=== PATIENT | female | born 1950 | race Caucasian/White ===

== ENCOUNTER → 2018-03-04 13:03 | Outpatient (CLI) | payer MEDICARE, OTHER, SELFPAY ==
--- NOTE | 2018-03-04 | DI.MG.S_ITS ---
UNILATERAL RIGHT DIGITAL DIAGNOSTIC MAMMOGRAM 3D/2D: 03/04/2018 CLINICAL: Patient returns for a 6 month follow up of the right breast. Comparison is made to exams dated: 08/25/2017 mammogram, 02/24/2017 mammogram, and 08/21/2016 mammogram - [facility]. There are scattered fibroglandular elements in the right breast. Previously identified 4 mm area of grouped heterogeneous calcifications in the right breast at 6 o'clock posterior depth are unchanged in extent of involvement and slightly more coarse and heterogenous than prior exam. No other significant masses, calcifications, or other findings are seen in either breast. IMPRESSION: PROBABLY BENIGN Similar 4 mm extent of grouped heterogeneous calcifications in the right breast, demonstrating increased coarsening suggestive of a degenerating fibroadenoma and is probably benign. A follow-up mammogram in 6 months is recommended to demonstrate stability. This exam was interpreted at Station ID: [id number]. NOTE: For mammograms, a report in lay terms will be sent to the patient. Approximately 15% of breast malignancies will not be visualized mammographically. In the management of a palpable breast mass, a negative mammogram must not discourage biopsy of a clinically suspicious lesion. Electronically Signed By: Dedrick Cochran M.D. ecl/:03/05/2018 05:54:19 letter sent: Followup Recommended ACR BI-RADS Category 3: Probably benign 3343F
== END ==
PROVIDERS: Family Provider Family Medicine; PCP Family Medicine; Visit Provider Family Medicine
DX: R92.1 Mammographic calcification found on diagnostic imaging of breast (principal)
CPT/HCPCS: 77065; G0279

== ENCOUNTER → 2018-03-20 12:25 | Outpatient (CLI) | payer MEDICARE, OTHER, SELFPAY ==
--- NOTE | 2018-03-20 | DI.RAD.S_ITS ---
PROCEDURE: XR KNEE LT 3V INDICATIONS: LEFT KNEE PAIN TECHNIQUE: 3 views of the knee were acquired. COMPARISON: [facility], , KNEE 3V RIGHT, 04/13/2010, 9:13. FINDINGS: Bones: No fractures or dislocations. No suspicious bony lesions. Moderate to severe tricompartment osteoarthritis is seen. No significant patellar subluxation. Soft tissues: No joint effusion. No suspicious soft tissue calcifications. IMPRESSION: Jikggycr-vk-jyulim tricompartment osteoarthritis in left knee. Dictated by: Kyle Ball M.D. on 03/20/2018 at 20:50 Approved by: Kyle Ball M.D. on 03/20/2018 at 20:50
== END ==
PROVIDERS: PCP Family Medicine; Visit Provider Family Medicine
DX: M25.562 Pain in left knee (principal); M17.12 Unilateral primary osteoarthritis, left knee
CPT/HCPCS: 73562

== ENCOUNTER → 2018-10-19 09:22 | Outpatient (CLI) | payer MEDICARE, OTHER, SELFPAY ==
--- NOTE | 2018-10-19 | DI.MG.S_ITS ---
BILATERAL DIGITAL DIAGNOSTIC MAMMOGRAM 3D/2D SHORT-TERM FOLLOW-UP: 10/19/2018 CLINICAL: Patient returns for 6 month follow up of right breast, due for bilateral exam. Comparison is made to exams dated: 03/04/2018 mammogram, 08/25/2017 mammogram, 02/24/2017 mammogram, 08/21/2016 mammogram, and 08/15/2016 mammogram - [facility]. There are scattered fibroglandular elements in both breasts. There is a benign 4 mm area of clustered heterogeneous calcifications in the right breast at 6 o'clock posterior depth. These are not significantly changed. No other significant masses, calcifications, or other findings are seen in either breast. IMPRESSION: There is no mammographic evidence of malignancy. A 1 year screening mammogram is recommended. This exam was interpreted at Station ID: [id number]. NOTE: For mammograms, a report in lay terms will be sent to the patient. Approximately 15% of breast malignancies will not be visualized mammographically. In the management of a palpable breast mass, a negative mammogram must not discourage biopsy of a clinically suspicious lesion. Electronically Signed By: Kaley Palmer M.D. lk/:10/19/2018 10:17:56 letter sent: Normal Exam ACR BI-RADS Category 2: Benign Finding(s) 3342F
== END ==
PROVIDERS: Family Provider Family Medicine; PCP Family Medicine; Visit Provider Family Medicine
DX: R92.1 Mammographic calcification found on diagnostic imaging of breast (principal)
CPT/HCPCS: 77066; G0279

== ENCOUNTER 2019-07-26 08:04 | Day surgery (SDC) | payer MEDICARE, OTHER, SELFPAY ==
[2019-07-26 08:21] VITALS: BP 148/81; PULSE 97; RESP 20; TEMP 36.3; O2SAT 95; BMI 35.0
[2019-07-26] MEDS: SODIUM CHLORIDE 0.9% 1,000 ML 200 ML IV (08:38)
--- NOTE | 2019-07-26 08:41 | PM.HP.1 ---
History of Present Illness History of Present Illness Date Patient Seen: 07/26/19 Time Patient Seen: 08:42 Chief complaint: [id number] SCREENING COLONOSCOPY Narrative: Patient presents for colorectal screening. Id a previously normal colonoscopy 12 years ago. No personal or family history of colon cancer. On further history denies any recent gastrointestinal symptoms. No nausea, vomiting, abdominal pain, loss of appetite, unexplained weight loss, change in bowel habits, diarrhea, constipation, melena, hematochezia, or bright red blood per rectum. Patient History Medical History Diabetes (Acute) HTN (hypertension) (Acute) Hyperlipidemia (Acute) Surgical History H/O section (Acute) History of cholecystectomy (Acute) Family & Social History Social History: household members spouse Tobacco & Substance use: Smoking Status Never smoker alcohol intake never Substance Use Type does not use Meds Home Medications and Allergies Home Medications Medication Instructions Recorded Confirmed Type Celebrex 200 mg 07/26/19 History Lexapro 10 mg 07/26/19 History levocetirizine 5 mg 07/26/19 History montelukast 10 mg 07/26/19 History Allergies Allergy/AdvReac Type Severity Reaction Status Date / Time iodine Allergy Unknown Verified 07/26/19 04:44 Penicillins Allergy Unknown Verified 07/26/19 04:44 codeine AdvReac Unknown Vomiting Verified 07/26/19 04:49 meperidine AdvReac Unknown Vomiting Verified 07/26/19 04:49 morphine AdvReac Unknown Vomiting Verified 07/26/19 04:49 Review of Systems Review of Systems Narrative: A 10 point review of systems is negative except as noted in the HPI Exam Vital Signs (past 8 hours): - 07/26/19 08:21 Temperature 97.4 F L Pulse Rate 97 H Respiratory Rate 20 Blood Pressure 148/81 H Pulse Oximetry 95 Oxygen Delivery Method Room Air Narrative Exam Narrative: General-no acute distress, well nourished HEENT-moist mucous membranes, no scleral icterus Neck-supple, no lymphadenopathy Chest- non labored respirations, clear to auscultation bilaterally Cardiac-regular rate no peripheral edema Abdomen-soft, nontender, non distended Extremities-warm, well perfused Neurological-alert and oriented, no focal deficits Assessment & Plan Assessment and plan (1) Screening for colon cancer: Current visit: Yes Status: Acute Assessment & Plan narrative: The patient requires colorectal screening and colonoscopy is recommended. Technical details were discussed. Risks, benefits, alternatives explained. Risks including but not limited to myocardial infarction, aspiration, bleeding, pain, missed lesion, incomplete examination, need for further radiographic studies, colonic perforation, and need for major abdominal surgery were discussed. All questions were answered to their satisfaction, and they are in agreement with this plan.
[2019-07-26] MEDS: MIDAZOLAM 5 MG/5 ML VIAL IV (08:46)
[2019-07-26] MEDS: fentaNYL 250 MCG/5 ML INJ IV (08:46)
--- NOTE | 2019-07-26 09:15 | PM.OP.ENDO ---
Operative Date/Time/Diagnoses Date of procedure: 07/26/19 Time of procedure: 09:15 Pre-op diagnosis: Screening colonoscopy Post-op diagnosis: same Procedure & Clinicians Study performed: Colonoscopy Same procedure as scheduled: Yes Indications: 69-year-old female last colonoscopy 12 years ago presents for screening Surgeon: Raj Sharma Procedure Notes SCOAP/Timeout: Performed Procedure in detail: Patient placed in left lateral decubitus position. Time out was performed. Procedural sedation was administered with Versed and Fentanyl. A rectal exam demonstrated no external hemorrhoids no internal masses. Colonoscopy scope was placed into the rectum and advanced through the colon to the cecum. The ileocecal valve was identified. The scope was then slowly withdrawn examining colon thoroughly in all directions. The colonoscopy was notable for the following 1. No masses or polyps 2. Sigmoid diverticulosis 3. Quality of prep fair Scope withdrawal time: 6 Sedation minutes: 30 Findings: diverticulosis Specimen(s): none sent Complications: none Impression: Diverticulosis Post-procedure Recommendations: Colonscopy in 10 years Disposition: same day surgery
[2019-07-26 09:18] VITALS: BP 107/60; PULSE 89; RESP 13; TEMP 36; O2SAT 94
[2019-07-26 09:23] VITALS: BP 101/56; PULSE 87; RESP 13; O2SAT 93
[2019-07-26 09:28] VITALS: BP 109/65; PULSE 88; RESP 13; O2SAT 92
[2019-07-26 09:33] VITALS: BP 120/78; PULSE 87; RESP 13; TEMP 36.6; O2SAT 93
[2019-07-26 09:52] VITALS: BP 138/76; PULSE 89; RESP 16; TEMP 36.6; O2SAT 93
== END 2019-07-26 09:58 | disposition home or self-care (01) ==
PROVIDERS: Family Provider Family Medicine; PCP Family Medicine; Referring Provider Surgery; Visit Provider Surgery
PROC: 0DJD8ZZ Inspection of Lower Intestinal Tract, Via Natural or Artificial Opening Endoscopic (ICD-10-PCS; CPT 45378; principal; 2019-07-26 09:15)
DX: Z12.11 Encounter for screening for malignant neoplasm of colon (principal); K57.30 Diverticulosis of large intestine without perforation or abscess without bleeding
CPT/HCPCS: G0121; 99152; 99153; J2250; J3010

== ENCOUNTER → 2020-05-18 11:14 | Outpatient (CLI) | payer MEDICARE, OTHER, SELFPAY ==
--- NOTE | 2020-05-18 | DI.MG.S_ITS ---
BILATERAL DIGITAL SCREENING MAMMOGRAM 3D/2D WITH CAD: 05/18/2020 CLINICAL: Routine screening. Family history of breast cancer. Comparison is made to exams dated: 10/19/2018 mammogram, 08/25/2017 mammogram, and 08/15/2016 mammogram - [facility]. There are scattered fibroglandular elements in both breasts. Current study was also evaluated with a Computer Aided Detection (CAD) system. There is a stable benign round asymmetry in the right breast at 6 o'clock anterior depth. No other significant masses, calcifications, or other findings are seen in either breast. IMPRESSION: BENIGN There is no mammographic evidence of malignancy. A 1 year screening mammogram is recommended. This exam was interpreted at Station ID: [id number]. NOTE: For mammograms, a report in lay terms will be sent to the patient. Approximately 15% of breast malignancies will not be visualized mammographically. In the management of a palpable breast mass, a negative mammogram must not discourage biopsy of a clinically suspicious lesion. Electronically Signed By: Pierre Tamayo acr/:05/18/2020 11:58:02 letter sent: Normal Exam ACR BI-RADS Category 2: Benign Finding(s) 3342F
== END ==
PROVIDERS: Family Provider Family Medicine; PCP Family Medicine; Referring Provider Family Medicine; Visit Provider Family Medicine
DX: Z12.31 Encounter for screening mammogram for malignant neoplasm of breast (principal); Z80.3 Family history of malignant neoplasm of breast
CPT/HCPCS: 77063; 77067

== ENCOUNTER → 2021-06-05 12:04 | Outpatient (CLI) | payer MEDICARE, OTHER, SELFPAY ==
--- NOTE | 2021-06-05 12:08 | DI.RAD.S_ITS ---
PROCEDURE: XR CHEST 2V INDICATIONS: COUGH TECHNIQUE: 2 views of the chest were acquired. COMPARISON: [facility], BARIUM SWALLOW, 07/18/2011, 10:31. [facility], CR, CHEST 2 VIEW, 12/17/2011, 8:36. [facility], , CHEST 2 VIEW, 10/07/2011, 7:00. FINDINGS: Surgical changes and devices: None. Lungs and pleura: Lungs are clear. No pleural effusions or pneumothorax. Mediastinum: Mediastinal contours are normal. Heart size is normal. Large non reducible hiatal hernia present. Bones and chest wall: No suspicious bony abnormalities. Soft tissues appear unremarkable. IMPRESSION: No source for cough identified radiographically. Non reducible hiatal hernia. Dictated by: Anam Reich [facility] Interpreted: Alondra Whitehead MD on 06/05/2021 at 13:06 Transcribed by: SAUMYA on 06/05/2021 at 13:08 Approved by: Alondra Whitehead MD, PhD on 06/05/2021 at 14:25
== END ==
PROVIDERS: Family Provider Family Medicine; PCP Family Medicine; Referring Provider Family Medicine; Visit Provider Family Medicine
DX: R05.3 Chronic cough (principal); K44.0 Diaphragmatic hernia with obstruction, without gangrene; R06.09 Other forms of dyspnea
CPT/HCPCS: 71046

== ENCOUNTER → 2021-07-10 10:19 | Outpatient (CLI) | payer MEDICARE, OTHER, SELFPAY | PROVIDERS: Family Provider Family Medicine; PCP Family Medicine; Referring Provider Family Medicine; Visit Provider Family Medicine | DX: R06.02 Shortness of breath (principal); R00.0 Tachycardia, unspecified ==

== ENCOUNTER → 2021-07-12 08:15 | Outpatient (CLI) | payer MEDICARE, OTHER, SELFPAY ==
--- NOTE | 2021-07-12 | DI.CT.S_ITS ---
PROCEDURE: CT CHEST W CON INDICATIONS: Chronic cough and other forms of dyspnea TECHNIQUE: After the administration of intravenous contrast, 5 mm thick sections acquired from the pulmonary apices to the posterior costophrenic angles. 1 mm axial lung, 5 mm thick coronal and sagittal reformats and 7 mm axial MIP were acquired. For radiation dose reduction, the following was used: automated exposure control, adjustment of mA and/or kV according to patient size. COMPARISON: [facility], CT, CHEST HIGH RESOLUTION, 02/04/2012, 10:53. [facility], CR, XR CHEST 2V, 06/05/2021, 12:03. FINDINGS: Image quality: Excellent. Lungs and pleura: No acute air space opacities. No pleural effusions or pneumothorax. Central and peripheral airways are patent and normal in caliber. Stable 3 mm posterior right upper lobe nodule (image 87/series 3). Multiple subpleural nodules are noted in the bilateral hemithoraces measuring between 2 and 5 mm in size. Largest left upper lobe nodule measures 3 mm (image 67/series 3). Largest left lower lobe nodule measures 5 mm on image 204/series 3. Largest right middle lobe nodule is seen on image 201/series 3. Mediastinum: Heart size is normal. No pericardial effusion. No mediastinal or hilar adenopathy by size criteria. Thoracic aorta and central pulmonary arteries are normal in size. Esophagus is normal in caliber. Moderate-sized hiatal hernia redemonstrated. Bones and chest wall: No suspicious bony lesions. No vertebral body compression fractures. No axillary or supraclavicular adenopathy by size criteria. Thyroid gland is unremarkable. Abdomen: Status post cholecystectomy. Partially exophytic 3.3 cm anterior right renal cyst. Remainder of the visualized upper abdominal solid organs and bowel loops appear unremarkable. IMPRESSION: 1. CT chest without acute cardiopulmonary abnormalities. No findings to explain patient's shortness of breath. 2. Multiple bilateral pulmonary nodules measuring between 2 mm and 5 mm. Recommend follow-up chest CT in 12 months to document continued stability. 3. Moderate-sized hiatal hernia. 4. Status post cholecystectomy. Dictated by: Payam Lim M.D. on 07/12/2021 at 10:26 Approved by: Payam Lim M.D. on 07/12/2021 at 10:38
== END ==
PROVIDERS: Family Provider Family Medicine; PCP Family Medicine; Referring Provider Family Medicine; Visit Provider Family Medicine
DX: R06.09 Other forms of dyspnea (principal); R05.3 Chronic cough; R91.8 Other nonspecific abnormal finding of lung field; K44.9 Diaphragmatic hernia without obstruction or gangrene; Z90.49 Acquired absence of other specified parts of digestive tract
CPT/HCPCS: 71260; Q9967

== ENCOUNTER → 2021-07-18 15:53 | Outpatient (CLI) | payer MEDICARE, OTHER, SELFPAY ==
--- NOTE | 2021-08-02 08:41 | PM.CARDMON.1 ---
Supervisor Fishing Report Referral & Results Date Patient Seen: 07/18/21 Requesting provider: Alisha Novoa Indication: Tachycardia Duration of monitoring (days): 8 Diary information: There were 9 patient triggered events and 10 patient diary entries Patient triggered events were variably associated with (within 45 seconds) sinus rhythm, PACs and PVCs Patient diary events were variably associated with (within 45 seconds) sinus rhythm and PACs Data: Minimum heart rate identified was 65 beats per minute at 04:20 on 07/21/2021 Maximum sinus heart rate was 132 beats per minute at 09:25 on 07/25/2021 Maximum overall heart rate was 154 beats per minute at 04:11 on 07/22/2021 during a run of SVT Less than 1% of identified beats were ventricular or supraventricular ectopic in origin, which would classify them as rare. Therefore runs of SVT the fastest being the 4 beat run noted above. The longest lasted 13 beats at a rate of 109 beats per minute which suggest more atrial tachycardia than true SVT No pauses or atrial fibrillation identified on this study Impression: 7+ day quality assurance monitor chassis demonstrating very rare very brief runs of SVT otherwise simple PACs and PVCs Clinical correlation suggested
== END ==
PROVIDERS: Family Provider Family Medicine; PCP Family Medicine; Referring Provider Family Medicine; Visit Provider Family Medicine
DX: R00.0 Tachycardia, unspecified (principal)
CPT/HCPCS: 93242; 93244

== ENCOUNTER → 2021-07-19 12:45 | Outpatient (CLI) | payer MEDICARE, OTHER, SELFPAY ==
[2021-07-19 14:19] LABS: COVID19 -Nasal RAPID Negative (Negative)
== END ==
PROVIDERS: Family Provider Family Medicine; PCP Family Medicine; Referring Provider Internal Medicine; Visit Provider Internal Medicine
DX: Z20.822 Contact with and (suspected) exposure to COVID-19 (principal)
CPT/HCPCS: 87635; C9803

== ENCOUNTER → 2021-07-20 12:35 | Outpatient (CLI) | payer MEDICARE, OTHER, SELFPAY ==
--- NOTE | 2021-07-25 07:42 | PM.PFT.1 ---
Pulmonary Function Test Referral & Results Date Patient Seen: 07/20/21 Requesting provider: Alisha Novoa Results: The spirometry demonstrates an FVC of 2.25 L which is 74% of predicted. The FEV1 was measured at 1.37 L which is 60% of predicted. The FEV1/FVC ratio was 61 which is 81% of predicted. Following the administration of bronchodilator there was 9% improvement in FEV1 and a 26% improvement in FEF 25-75% Lung volumes show an SVC of 2.56 L which is 88% of predicted. The diffusing capacity was measured at 21.91 which is 85% of predicted. The maximum voluntary ventilation was reduced Interpretation: This study demonstrates mild to moderate obstructive lung disease based on reduction FEV1 although FEV1/FVC ratio is relatively preserved. There is some evidence of benefit after bronchodilator as above. Shape of flow volume loop also supports the presence of obstructive lung disease Clinical correlation suggested
== END ==
PROVIDERS: Family Provider Family Medicine; PCP Family Medicine; Referring Provider Family Medicine; Visit Provider Family Medicine
DX: R06.00 Dyspnea, unspecified (principal); R05.3 Chronic cough; R06.02 Shortness of breath; J44.9 Chronic obstructive pulmonary disease, unspecified
CPT/HCPCS: 94060; 94726; 94729

== ENCOUNTER → 2021-07-30 07:52 | Outpatient (CLI) | payer MEDICARE, OTHER, SELFPAY ==
--- NOTE | 2021-07-30 | DI.ECHO.S_ITS ---
[facility]---------+ [facility] +---------+ : : [address] : [place] : : : : [id number] : : : : Phone: [phone]+ Echocardiogram Report + + :Name: EUFEMIA DELEON Study Date: 07/30/2021 Height: 65 in : :[facility] ReadingLocation: Weight: 220 lb : : Gender: Female BSA: 2.1 m2 : :: 1950 Age: 71 yrs BP: 130/80 mmHg: :Reason For Study: Unspecified abnormalities of breathing : :Ordering Physician: : :WOODY Performed By: Jt Etienne : :Referring: CHRISSIE EVANS : + + Interpretation Summary 1) Normal left ventricular thickness, size, wall motion, and systolic function (EF 60-65%). 2) Normal right ventricular size and function. 3) No significant valvular abnormalities. 4) No prior Echo available for comparison. Procedure: A two-dimensional transthoracic echocardiogram with color flow and Doppler was performed. There is no prior echocardiogram noted for this patient. Overall fair image quality. The patient was in normal sinus rhythm during the exam. Left Ventricle: The left ventricle is normal in size and wall thickness. Left ventricular systolic function appears normal without focal wall motion abnormalities. The ejection fraction is estimated to be 60-65%. Right Ventricle: The right ventricle is normal in size and function. Atria: Both atria are normal in size. There is no Doppler evidence for an interatrial shunt. Mitral Valve: The mitral valve is normal in structure and function. Aortic Valve: The aortic valve opens well. The aortic valve is grossly normal. There is no aortic valve stenosis. There is trace aortic regurgitation. Tricuspid Valve: The tricuspid valve is normal. There is trace tricuspid regurgitation. The right ventricular systolic pressure is estimated to be at least 20 mmHg based on an estimated right atrial pressure of 3 mm Hg. Pulmonic Valve: The pulmonic valve is not well seen, but is grossly normal. Great Vessels: The aortic root is normal size. The ascending aorta is normal in size. The aortic arch is normal in size. The IVC is of normal diameter and collapses greater than 50% with a sniff. This suggests a low right atrial pressure of 3 mm Hg. Pericardium/ Pleura There is no pericardial effusion. There is an anterior echo-free space consistent with a fat pad. There is no pleural effusion. MMode/2D Measurements & Calculations LVIDd: 3.6 cm LVOT diam: 1.8 cm LVIDs: 2.5 cm Ao root diam: 2.9 cm FS: 30.6 % asc Aorta Diam: 2.9 cm IVSd: 0.70 cm Ao Arch Diam (Prox Trans): 2.4 cm LVPWd: 0.70 cm LV rachel. diameter/BSA (cm/m^2): 1.7 LV sys. diameter/BSA (cm/m^2): 1.2 LA A2 area: 12.6 cm2 RA long axis: 4.6 cm LA A4 area: 19.9 cm2 LA length (vol): 4.8 cm LA vol: 44.1 ml LA vol index: 21.4 ml/m2 LVLs ap4: 4.8 cm TAPSE_phl: 2.4 cm Doppler Measurements & Calculations Ao V2 max: 119.0 cm/sec LVOT Max Esdras: 114.0 cm/sec Ao V2 mean: 92.0 cm/sec LV V1 max P.2 mmHg Ao max P.0 mmHg LV V1 VTI: 24.1 cm Ao mean P.0 mmHg SUREKHA(I,D): 2.5 cm2 Ao V2 VTI: 24.5 cm SUREKHA(V,D): 2.4 cm2 sev ratio: 0.98 SUREKHA indexed to BSA (cm^2/m^2): 1.2 MV E max esdras: 91.7 cm/sec TR max esdras: 203.6 cm/sec MV A max esdras: 79.7 cm/sec TR max P.6 mmHg MV E/A: 1.2 Med Peak E' Esdras: 8.0 cm/sec E/E' med: 11.4 Lat Peak E' Esdras: 10.3 cm/sec E/E' lat: 8.9 E/e' average: 10.2 MV dec time: 0.14 sec SV(LVOT): 61.3 ml AV VR_phl: 0.96 SUREKHA(VTI)/BSA_phl: 1.2 MV P1/2t-pr_phl: 40.0 msec Reading Physician:09:15 AM
== END ==
PROVIDERS: Family Provider Family Medicine; PCP Family Medicine; Referring Provider Family Medicine; Visit Provider Family Medicine
DX: R06.09 Other forms of dyspnea (principal); R00.0 Tachycardia, unspecified
CPT/HCPCS: 93306

== ENCOUNTER → 2021-08-01 10:11 | Outpatient (CLI) | payer MEDICARE, OTHER, SELFPAY ==
--- NOTE | 2021-08-01 | DI.MG.S_ITS ---
BILATERAL DIGITAL SCREENING MAMMOGRAM 3D/2D WITH CAD: 08/01/2021 CLINICAL: Routine screening. Comparison is made to exams dated: 05/18/2020 mammogram, 10/19/2018 mammogram, 03/04/2018 mammogram, and 08/25/2017 mammogram - [facility]. There are scattered fibroglandular elements in both breasts. Current study was also evaluated with a Computer Aided Detection (CAD) system. No significant masses, calcifications, or other findings are seen in either breast. There has been no significant interval change. IMPRESSION: NEGATIVE There is no mammographic evidence of malignancy. A 1 year screening mammogram is recommended. This exam was interpreted at Station ID: [id number]. NOTE: For mammograms, a report in lay terms will be sent to the patient. Approximately 15% of breast malignancies will not be visualized mammographically. In the management of a palpable breast mass, a negative mammogram must not discourage biopsy of a clinically suspicious lesion. Electronically Signed By: Erin vargas/mayco:08/01/2021 13:24:13 letter sent: Normal Exam ACR BI-RADS Category 1: Negative 3341F
== END ==
PROVIDERS: Family Provider Family Medicine; PCP Family Medicine; Referring Provider Family Medicine; Visit Provider Family Medicine
DX: Z12.31 Encounter for screening mammogram for malignant neoplasm of breast (principal)
CPT/HCPCS: 77063; 77067

== ENCOUNTER → 2021-08-20 13:26 | Outpatient (CLI) | payer MEDICARE, OTHER, SELFPAY ==
[2021-08-20 17:30] LABS: COVID19 -Nasal RAPID Negative (Negative)
== END ==
PROVIDERS: Family Provider Family Medicine; PCP Family Medicine; Visit Provider Family Medicine Sleep Medicine
DX: Z20.822 Contact with and (suspected) exposure to COVID-19 (principal)
CPT/HCPCS: 87635; C9803

== ENCOUNTER → 2021-08-22 13:34 | Outpatient (CLI) | payer MEDICARE, OTHER, SELFPAY ==
--- NOTE | 2021-08-23 11:59 | PM.TREADMILL ---
Cardiac Stress Test Report Referral & Results Indication: dyspnea on exertion Rest ECG: NSR with non specific ST changes Procedure Note: lexiscan Impression: after lexiscan, patient had minimal dyspnea; no chest discomfort; baseline ECG NSR with nonspecific ST changes; no significant ST cahnges on ECG after Lexiscan injection. No ectopy. No reversal agents needed. TERESA Major Please note: Actual ECG tracings can be found in the PACS system.
--- NOTE | 2021-08-23 18:59 | DI.NM.S_ITS ---
DATE OF SERVICE: 08/22/2021 PROCEDURE: Pharmacological perfusion study. INDICATION: Dyspnea, tachycardia, underlying diabetes mellitus and hypertension. RADIOPHARMACEUTICAL: 26.3 millicurie technetium-99m Myoview IV was injected at stress and 24.6 millicurie technetium-99m Myoview IV was injected at rest. CARDIAC STRESS: The patient underwent a Lexiscan perfusion study under the supervision of an attending staff. The patient remained hemodynamically stable. Had minimal dyspnea. No chest discomfort. Baseline rhythm was mild sinus tachycardia. During stress, no convincing ischemic changes seen. There were some nonspecific ST changes. No significant sustained new arrhythmias seen. RAW DATA: There was significant breast shadow seen. There was increased subdiaphragmatic activity. GATED STUDY: Resting LV ejection and stress LV ejection fraction 77 percent without any obvious wall motion abnormalities. Resting end-diastolic volume 81 mL. TID ratio 0.97, which is within normal limits. Lung/heart ratio 0.33, which is within normal limits. MYOCARDIAL PERFUSION SCAN: Stress supine and resting supine images were compared to each other. Please note that there are no stress prone images. Stress supine and resting supine images revealed predominantly fixed, small to moderate size, mildly decreased perfusion of inferolateral wall, extending into the inferoapex, as well as distal anterior wall. I do not see significant reversible ischemic burden. CONCLUSION: Predominantly fixed, mild to moderate size inferolateral wall defect extending into the inferior apex and distal anterior wall. The patient has significantly large breast shadow on raw images. Gated study revealed normal wall motion abnormalities and normal LV function, which goes against the diagnosis of previous transmural myocardial infarction. Prone images could not be performed. Most likely, we are dealing with tissue attenuation artifact however one cannot rule out the possibility of nontransmural myocardial infarction in that area. Correlate clinically. In view of preserved left ventricular function without any significant ischemic burden, overall appears to be low-risk study. FcoJemalen - JEAN CARLOS/az/ambar doc#: [id number]/job#: [id number] dd: 08/23/2021 17:21:00 dt: 08/23/2021 17:35:00 DICTATING MD/COPIES TO: Kofi De La Rosa MD COPIES MNE: JONAS;
== END ==
PROVIDERS: Family Provider Family Medicine; PCP Family Medicine; Referring Provider Family Medicine; Visit Provider Family Medicine
DX: R06.00 Dyspnea, unspecified (principal); R00.0 Tachycardia, unspecified; E11.9 Type 2 diabetes mellitus without complications; I10 Essential (primary) hypertension
CPT/HCPCS: 78452; 93017; A9502; J2785

== ENCOUNTER → 2021-08-27 12:43 | Outpatient (CLI) | payer MEDICARE, OTHER, SELFPAY ==
--- NOTE | 2021-08-27 12:47 | DI.RAD.S_ITS ---
PROCEDURE: XR KNEE LT 3V INDICATIONS: LT HIP AND KNEE PAIN TECHNIQUE: 3 views of the knee were acquired. COMPARISON: [facility], CR, XR KNEE 1 OR 2 VIEWS LEFT, 08/25/2018, 10:58. FINDINGS: Bones: Postsurgical changes are seen from left total knee arthroplasty. Hardware components do not appear significantly changed when compared to the prior exam. No acute osseous fracture identified. Soft tissues: No joint effusion. No suspicious soft tissue calcifications. IMPRESSION: Stable postsurgical changes from left total knee arthroplasty. No acute osseous abnormality. Dictated by: Omar Gaines M.D. on 08/27/2021 at 14:10 Approved by: Omar Gaines M.D. on 08/27/2021 at 14:12
--- NOTE | 2021-08-27 12:47 | DI.RAD.S_ITS ---
PROCEDURE: XR HIP W PEL IF DONE LT 2V INDICATIONS: LT HIP AND KNEE PAIN TECHNIQUE: AP pelvis with AP and lateral views of the left hip. COMPARISON: None. FINDINGS: Bones: Questionable linear lucency at the left femoral neck could represent a nondisplaced subcapital fracture versus likely artifact related to superimposed osseous structures. Moderate to severe axial joint space narrowing is seen in the left hip with marginal osteophyte formation. There is mild to moderate right hip osteoarthrosis. Degenerative changes are seen in the included lumbar spine. Pelvic ring appears intact. No suspicious bony lesions. Soft tissues: The visualized bowel gas pattern is normal. No suspicious soft tissue calcifications. IMPRESSION: 1. Possible nondisplaced fracture of the left femoral neck versus superimposed osseous structures resulting in artifactual lucency. Recommend clinical correlation. If there is clinical concern for a proximal femoral fracture, further evaluation with MRI or CT could be performed. 2. Moderate to severe left hip osteoarthrosis. Mild moderate right hip osteoarthrosis. 3. Degenerative changes in the included lumbar spine. Dictated by: Omar Gaines M.D. on 08/27/2021 at 14:05 Approved by: Omar Gaines M.D. on 08/27/2021 at 14:10
== END ==
PROVIDERS: Family Provider Family Medicine; PCP Family Medicine; Referring Provider Family Medicine; Visit Provider Family Medicine
DX: M16.0 Bilateral primary osteoarthritis of hip (principal); M47.816 Spondylosis without myelopathy or radiculopathy, lumbar region; M25.552 Pain in left hip; M25.562 Pain in left knee; Z96.652 Presence of left artificial knee joint
CPT/HCPCS: 73502; 73562

== ENCOUNTER 2021-08-27 13:47 | Emergency (ER) | payer MEDICARE, OTHER, SELFPAY ==
[2021-08-27] VITALS (10 sets, daily range): BP systolic 116–150; BP diastolic 60–72; PULSE 85–105; RESP 16–20; TEMP 36.1; O2SAT 92–96
--- NOTE | 2021-08-27 16:21 | DI.CT.S_ITS ---
PROCEDURE: CT PEL WO CON INDICATIONS: f/u on x ray w/ possible hip fx TECHNIQUE: Noncontrast 3 mm axial sections acquired through the bony pelvis, with coronal and sagittal reformatting. COMPARISON: [facility], CR, XR HIP W PEL IF DONE LT 2V, 08/27/2021, 12:48. FINDINGS: Image quality: Excellent. Bones: Pelvic ring is intact. No acute pelvic or hip fracture. No hip dislocation. Moderate to severe left hip joint osteoarthritic changes and moderate right hip joint osteoarthritic changes are seen. No evidence of avascular necrosis of femoral head. No suspicious intraosseous lesion. Soft tissues: There is no pelvic free fluid or free air. No bowel obstruction or abnormal bowel wall thickening. Sigmoid diverticulosis is seen without CT evidence of acute diverticulitis. Partially distended urinary bladder shows no gross bladder wall abnormality. No gross muscle or soft tissue abnormality is seen in pelvis and bilateral hip. No discrete intramuscular hematoma is seen. IMPRESSION: 1. No acute pelvic or hip fracture. No hip dislocation. Left worse than right bilateral hip joint osteoarthritis. No evidence of avascular necrosis of femoral head. 2. No pelvic free fluid or free air. No gross pelvic muscle or soft tissue abnormality. Dictated by: Kyle Ball M.D. on 08/27/2021 at 16:38 Approved by: Kyle Ball M.D. on 08/27/2021 at 16:42
--- NOTE | 2021-08-27 18:11 | ED_ITS ---
HPI - Fall <ALLISON ReichP - Last Filed: 08/27/21 18:55> General Chief Complaint: Fall Stated Complaint: Pain in Lt Hip and Knee, Sent from DI Time Seen by Provider: 08/27/21 17:55 Source: patient Mode of arrival: Wheelchair History of Present Illness HPI Narrative: This is a pleasant 71-year-old female with history of diabetes, hypertension, hyperlipidemia who presents to the emergency department of worsening left pain with referred pain into her over the last 2 days. Patient states that any movement is very painful, she describes it as sharp, deep in her left hip, denies any weakness, denies any recent trauma. Patient states that she fell 3 weeks ago and her left hip has been painful intermittently in the past but over the last 2 days it has become excruciating. Patient is ambulatory with a cane, she has been using a cane since her left knee replacement. She denies any other joint replacements in the past. She denies any fever, weakness, endorses taking Celebrex for her migraines so she is not taking any pain medication as there is not a lot compatible with it. Related Data Home Medications Medication Instructions Recorded Confirmed Celebrex 200 mg 07/26/19 Lexapro 10 mg 07/26/19 levocetirizine 5 mg 07/26/19 montelukast 10 mg 07/26/19 Previous Rx's Medication Instructions Recorded diclofenac sodium 1 % topical gel 2 g TOPICAL QID #100 g 08/27/21 (Voltaren Arthritis Pain) diclofenac sodium 1 % topical gel 2 g TOPICAL QID PRN #100 g 08/27/21 (Voltaren Arthritis Pain) lidocaine 5 % topical patch 1 patch TOPICAL DAILY PRN #15 ea 08/27/21 oxycodone-acetaminophen 5 mg-325 1 tab PO Q8H PRN #14 tab 08/27/21 mg tablet (Percocet) sulfamethoxazole 800 1 tab PO BID 7 Days #14 tab 08/27/21 mg-trimethoprim 160 mg tablet (Bactrim DS) tramadol 50 mg tablet 50 mg PO BID PRN #14 tab 08/27/21 Allergies Allergy/AdvReac Type Severity Reaction Status Date / Time iodine Allergy Unknown Verified 08/27/21 14:17 Penicillins Allergy Unknown Verified 08/27/21 14:17 codeine AdvReac Unknown Vomiting Verified 08/27/21 14:17 meperidine AdvReac Unknown Vomiting Verified 08/27/21 14:17 morphine AdvReac Unknown Vomiting Verified 08/27/21 14:17 Review of Systems <TERESA Reich - Last Filed: 08/27/21 18:55> Review of Systems Narrative: General: denies fever, chills, malaise, sweats, fatigue Head/Neck: denies headache, neck pain, dizziness Eyes: denies visual changes, eye pain Cardio: denies chest pain, palpitations, edema Respiratory: denies dyspnea, cough, orthopnea GI: denies abdominal pain, nausea, vomiting, or diarrhea : denies dysuria, hematuria, urinary retention, frequency or incontinence MSK: Endorses left hip pain, worse with movement, denies any muscle weakness Skin: denies rash, itching, skin lesions or other Neuro: denies numbness, tingling Patient History <TERESA Reich - Last Filed: 08/27/21 18:55> Medical History Diabetes HTN (hypertension) Hyperlipidemia Surgical History H/O section History of cholecystectomy Social History household members: spouse Smoking Status: Never smoker alcohol intake: never Smoking Status: Never smoker Substance Use Type: does not use Exam <TERESA Reich - Last Filed: 08/27/21 18:55> Narrative Exam Narrative: Independently reviewed vitals signs and nursing notes. General: cooperative, comfortable, in no acute distress, well developed and well groomed Head: atraumatic, symmetrical facial expressions Neck: supple, atraumatic, without lymphadenopathy. Eyes: pupils equal round and reactive, EOMI, conjunctiva normal Nose: nares patent, no rhinorrhea Mouth/Throat: uvula midline, moist mucus membranes Cardiovascular: regular rate and rhythm, no peripheral edema, warm extremities Respiratory: normal effort, able to speak in complete sentences, no audible wheezing, stridor, or rales. No retractions or tachypnea. GI: abdomen soft, nontender to palpation, nondistended, no masses, no exquisite tenderness with exam, without guarding or rebound. MSK: moves all extremities, ambulatory w/steady gait using a cane the left, ambulating is very painful, patient complains of stiffness after rest. Neurovascularly intact, no weakness Skin: brisk capillary refill, no rash, no erythema Neuro: normal speech and cognition, A&O x3, normal tone Psych: mental status is grossly normal, congruent mood, normal affect, pleasant and cooperative Initial Vital Signs Initial Vital Signs: Vital Signs Temperature 96.9 F L 08/27/21 14:14 Pulse Rate 96 H 08/27/21 14:14 Respiratory Rate 20 08/27/21 14:14 Blood Pressure 116/60 08/27/21 14:14 Pulse Oximetry 94 08/27/21 14:14 <Preethi Guillen DO - Last Filed: 08/28/21 07:56> Initial Vital Signs Initial Vital Signs: Vital Signs Temperature 96.9 F L 08/27/21 14:14 Pulse Rate 96 H 08/27/21 14:14 Respiratory Rate 20 08/27/21 14:14 Blood Pressure 116/60 08/27/21 14:14 Pulse Oximetry 94 08/27/21 14:14 Course <TERESA Reich - Last Filed: 08/27/21 18:55> Orders Ordered: Discontinued Medications Acetaminophen (Acetaminophen 325 Mg Tablet) 975 mg PO NOW ONE Stop: 08/27/21 18:28 Last Admin: 08/27/21 18:43 Dose: 975 mg Documented by: NATTY Lidocaine (Lidocaine Patch 1 Each Adh..Patch) 1 each TOP NOW ONE Stop: 08/27/21 18:28 Last Admin: 08/27/21 18:43 Dose: 1 each Documented by: ANTTY Tramadol HCl (Tramadol 50 Mg Tablet) 50 mg PO NOW ONE Stop: 08/27/21 18:07 Last Admin: 08/27/21 18:15 Dose: Not Given Documented by: CARMELO Trimethoprim/Sulfamethoxazole (Trimeth/Sulfa 160/800 (Ds) Tablet) 1 tab PO NOW ONE Stop: 08/27/21 18:07 Last Admin: 08/27/21 18:15 Dose: Not Given Documented by: CARMELO Vital Signs Vital signs: Vital Signs - 8 hr 08/27/21 14:14 08/27/21 16:41 08/27/21 16:43 Temperature 96.9 F L Pulse Rate 96 H 93 H 91 H Respiratory Rate 20 Blood Pressure 116/60 144/67 H Pulse Oximetry 94 92 94 08/27/21 17:00 08/27/21 17:30 Temperature Pulse Rate 86 86 Respiratory Rate Blood Pressure 131/62 134/69 Pulse Oximetry 94 95 <Preethi Guillen DO - Last Filed: 08/28/21 07:56> Orders Ordered: Discontinued Medications Acetaminophen (Acetaminophen 325 Mg Tablet) 975 mg PO NOW ONE Stop: 08/27/21 18:28 Last Admin: 08/27/21 18:43 Dose: 975 mg Documented by: NATTY Lidocaine (Lidocaine Patch 1 Each Adh..Patch) 1 each TOP NOW ONE Stop: 08/27/21 18:28 Last Admin: 08/27/21 18:43 Dose: 1 each Documented by: NATTY Tramadol HCl (Tramadol 50 Mg Tablet) 50 mg PO NOW ONE Stop: 08/27/21 18:07 Last Admin: 08/27/21 18:15 Dose: Not Given Documented by: CARMELO Trimethoprim/Sulfamethoxazole (Trimeth/Sulfa 160/800 (Ds) Tablet) 1 tab PO NOW ONE Stop: 08/27/21 18:07 Last Admin: 08/27/21 18:15 Dose: Not Given Documented by: CARMELO Vital Signs Vital signs: Vital Signs - 8 hr 08/27/21 14:14 08/27/21 16:41 08/27/21 16:43 Temperature 96.9 F L Pulse Rate 96 H 93 H 91 H Respiratory Rate 20 Blood Pressure 116/60 144/67 H Pulse Oximetry 94 92 94 08/27/21 17:00 08/27/21 17:30 Temperature Pulse Rate 86 86 Respiratory Rate Blood Pressure 131/62 134/69 Pulse Oximetry 94 95 MDM - Fall <TERESA Reich - Last Filed: 08/27/21 18:55> Imaging Data Extremity x-ray #1: Radiologist's Impression: PROCEDURE:? CT PEL WO CON ? INDICATIONS:? f/u on x ray w/ possible hip fx ? TECHNIQUE:? Noncontrast 3 mm axial sections acquired through the bony pelvis, with coronal and sagittal reformatting.? ? COMPARISON:? [facility], CR, XR HIP W PEL IF DONE LT 2V, 08/27/2021, 12:48. ? FINDINGS:? Image quality:? Excellent.? ? Bones:? Pelvic ring is intact.? No acute pelvic or hip fracture.? No hip dislocation.? Moderate to severe left hip joint osteoarthritic changes and moderate right hip joint osteoarthritic changes are seen.? No evidence of avascular necrosis of femoral head.? No suspicious intraosseous lesion. ? Soft tissues:? There is no pelvic free fluid or free air.? No bowel obstruction or abnormal bowel wall thickening.? Sigmoid diverticulosis is seen without CT evidence of acute diverticulitis.? Partially distended urinary bladder shows no gross bladder wall abnormality.? No gross muscle or soft tissue abnormality is seen in pelvis and bilateral hip.? No discrete intramuscular hematoma is seen. ? ? IMPRESSION:? 1. No acute pelvic or hip fracture.? No hip dislocation.? Left worse than right bilateral hip joint osteoarthritis.? No evidence of avascular necrosis of femoral head. 2. No pelvic free fluid or free air.? No gross pelvic muscle or soft tissue abnormality.? Dictated by: Kyle Ball M.D. on 08/27/2021 at 16:38 ? ? Approved by: Kyle Ball M.D. on 08/27/2021 at 16:42 ? Extremity x-ray #2: Radiologist's Impression: PROCEDURE:? XR KNEE LT 3V ? INDICATIONS:? LT HIP AND KNEE PAIN ? TECHNIQUE: 3 views of the knee were acquired.? ? COMPARISON:? [facility], CR, XR KNEE 1 OR 2 VIEWS LEFT, 08/25/2018, 10:58. ? FINDINGS:? ? Bones:? Postsurgical changes are seen from left total knee arthroplasty.? Hardware components do not appear significantly changed when compared to the prior exam.? No acute osseous fracture identified. ? Soft tissues:? No joint effusion.? No suspicious soft tissue calcifications.? ? ? IMPRESSION:? Stable postsurgical changes from left total knee arthroplasty.? No acute osseous abnormality. ? ? Dictated by: Omar Gaines M.D. on 08/27/2021 at 14:10 ? ? Approved by: Omar Gaines M.D. on 08/27/2021 at 14:12 ? MDM Narrative Medical decision making narrative: 71-year-old female presents with history of diabetes, hypertension, hyperlipidemia who presents to the emergency department complaining of worsening left hip pain after a fall she had 3 weeks ago. Patient endorses pain from her left hip is referred into her left knee which she had replaced a few years ago. Patient was concerned that something was wrong with her arthroplasty of her left knee. X-ray of her left knee shows stable postsurgical changes from a left knee total arthroscopy, no acute osseous abnormality, no joint effusion. CT of her left hip does not show any acute pelvic or hip fracture, no hip dislocation, left worth than right bilateral hip joint osteoarthritis, no evidence of avascular necrosis of the femoral head, no pelvic free fluid or free air, no gross pelvic muscle or soft tissue abnormality. A referral was placed to [facility]. Encourage patient to follow-up with Dr. Novoa for a referral to physical therapy, patient was given information about [facility] and had a follow-up. Patient was given diclofenac topical ointment, lidocaine patches, Percocet and tramadol as needed for pain. Patient states that her pain is so significant she can not get up sometimes, and she can not sleep very well at night. Patient states she will use the Percocet only if she needs to trying fall asleep in the middle the night. She has allergy to morphine and codeine, but she has tolerated these medications in the past she states. Patient is appropriate and amenable to discharge home. Vital signs are stable on repeat examination is unremarkable. Patient has been informed of results. Patient has been given strict return to ER precautions for any new or worsening symptoms. Patient understands to follow up closely with outpatient providers as instructed. Patient understands plan and agrees to discharge home. All questions and concerns answered at this time. Discharge Plan Departure Patient Disposition: Home Clinical Impression: Arthrosis of hip Instructions: Osteoarthritis Activity Restrictions/Additional Instructions: *You have been diagnosed with osteoarthritis of your left hip. The CT did not show any fracture, this is great news. I have sent a referral over to [facility], please follow-up with them, and Dr. Novoa for referral for physical therapy in the meantime. Please try the lidocaine patches, I hope that they are helpful. I have sent over tramadol, and Percocet for pain. Please follow-up with Orthopedics, hope that that will be helpful. Return to the emergency department for any worsening. *What to do: *Please continue to take your regular medications as directed. [x ] New medication prescriptions sent to your pharmacy: [ [facility]] [ ] New medication written as a paper prescription [ ] No new medications given *Please follow up with your primary care provider in 2-3 days, call for an appointment. Let them know you were seen in the Emergency Department and that we asked that you be seen for follow-up. We will electronically transmit a record of today's note if your PCP is in our system *If you do not have a primary care provider please contact [phone] to establish care with one of the [facility] primary care providers. *Return to Emergency Department if you should have any new, worsening or concerning symptoms, such as [fever greater than 101F, chills, worsening pain, persistent vomiting or other bothersome symptoms] Prescriptions: New sulfamethoxazole-trimethoprim [Bactrim DS] 800-160 mg tablet 1 tab PO BID 7 Days Qty: 14 0RF diclofenac sodium [Voltaren Arthritis Pain] 1 % gel 2 g topical QID Qty: 100 0RF Rx Instructions: apply to single elbow, wrist or hand; for hand includes palm/fingers/back of hand diclofenac sodium [Voltaren Arthritis Pain] 1 % gel 2 g topical QID PRN (Reason: pain) Qty: 100 0RF Rx Instructions: apply to single elbow, wrist or hand; for hand includes palm/fingers/back of hand tramadol 50 mg tablet 50 mg PO BID PRN (Reason: pain) Qty: 14 0RF oxycodone-acetaminophen [Percocet] 5-325 mg tablet 1 tab PO Q8H PRN (Reason: pain) Qty: 14 0RF lidocaine 5 % adhesive patch,medicated 1 patch topical DAILY PRN (Reason: pain) Qty: 15 0RF Rx Instructions: leave on most painful area for up to 12 hrs No Action Celebrex 200 mg 200 mg 0RF Lexapro 10 mg 10 mg 0RF levocetirizine 5 mg 5 mg 0RF montelukast 10 mg 10 mg 0RF Referrals: [facility] [Provider Group] - 3-5 days Alisha Novoa MD [Primary Care Provider] - <Preethi Guillen DO - Last Filed: 08/28/21 07:56> Cosign ED Attending Cosignature Attestation: I was immediately available in the department for consultation. Documentation has been reviewed. I agree with assessment and plan.
[2021-08-27] MEDS: ACETAMINOPHEN 325 MG TABLET 975 MG PO (18:43)
[2021-08-27] MEDS: LIDOCAINE PATCH 1 EACH ADH..PATCH TOP (18:43)
== END 2021-08-27 19:06 | disposition home or self-care (01) ==
PROVIDERS: Emergency Provider Nurse Practitioner Critical Care Medicine; Family Provider Family Medicine; PCP Family Medicine
DX: M16.12 Unilateral primary osteoarthritis, left hip (principal); Z88.5 Allergy status to narcotic agent; M16.0 Bilateral primary osteoarthritis of hip; M47.816 Spondylosis without myelopathy or radiculopathy, lumbar region; M25.552 Pain in left hip; M25.562 Pain in left knee; Z96.652 Presence of left artificial knee joint
CPT/HCPCS: 72192; 73502; 73562; 99284

== ENCOUNTER → 2021-09-04 15:24 | Outpatient (CLI) | payer MEDICARE, OTHER, SELFPAY ==
--- NOTE | 2021-09-04 | DI.RAD.S_ITS ---
PROCEDURE: XR SACRUM COCCYX MIN 2V INDICATIONS: PAIN TECHNIQUE: 3 views of the sacrum and coccyx acquired. COMPARISON: None. FINDINGS: Bones: No fractures or dislocations. No suspicious bony lesions. Degenerative disc changes and facet arthropathy noted in the lower lumbar spine. Soft tissues: Visualized bowel gas pattern is normal. No suspicious soft tissue densities. IMPRESSION: No fracture. No acute osseous lesion. If symptoms and/or clinical suspicion for pathology persists, further assessment with repeat radiographs (7-10 days) or advanced imaging (e.g. CT, MRI or bone scan) should be considered. Dictated by: Alondra Whitehead MD, PhD on 09/04/2021 at 17:04 Approved by: Alondra Whitehead MD, PhD on 09/04/2021 at 17:04
--- NOTE | 2021-09-04 15:28 | DI.RAD.S_ITS ---
PROCEDURE: XR LUMBAR SPINE 2-3V INDICATIONS: LOW BACK PAIN, BY HIP TECHNIQUE: 3 views of the lumbar spine were acquired. COMPARISON: None. FINDINGS: Bones: 5 [id number] vertebrae are present. There is mild L3-L4 retrolisthesis. There is trace L2-L3 retrolisthesis. There is severe convex left scoliosis of the lumbar spine. Severe degenerative disc changes noted throughout the lumbar spine. Severe L3-L4, L4-L5 and L5-S1 facet arthropathy. Moderate L1-L2 and L2-L3 facet arthropathy. No vertebral body compression fractures. No suspicious bony lesions. Soft tissues: Overlying bowel gas pattern is normal. No suspicious soft tissue calcifications. IMPRESSION: 1. Multilevel degenerative disc disease. 2. Multilevel facet arthropathy. 3. No fracture. No acute osseous lesion. If symptoms and/or clinical suspicion for pathology persists, evaluation with MRI should be considered for further assessment. 4. Convex left scoliosis. Dictated by: Alondra Whitehead MD, PhD on 09/04/2021 at 17:03 Approved by: Alondra Whitehead MD, PhD on 09/04/2021 at 17:04
== END ==
PROVIDERS: Family Provider Family Medicine; PCP Family Medicine; Referring Provider Family Medicine; Visit Provider Family Medicine
DX: M47.26 Other spondylosis with radiculopathy, lumbar region (principal); M51.16 Intervertebral disc disorders with radiculopathy, lumbar region; M54.50 Low back pain, unspecified; M41.86 Other forms of scoliosis, lumbar region
CPT/HCPCS: 72100; 72220

== ENCOUNTER → 2022-08-07 13:10 | Outpatient (CLI) | payer MEDICARE, OTHER, SELFPAY ==
--- NOTE | 2022-08-07 13:21 | DI.MRI.S_ITS ---
PROCEDURE: MR LUMBAR SPINE WO CON INDICATIONS: Radiculopathy, lumbar region TECHNIQUE: Noncontrast sagittal T1 spin echo and T2 fast echo, sagittal STIR, and T2 fast spin echo through the lumbar spine. In cases with scoliosis, additional coronal T2 fast spin echo may be performed. COMPARISON: None. FINDINGS: Image quality: Excellent. Alignment and Curvature: Leftward curvature with a Yadav angle of 36?. Bone Marrow: Marrow is of normal overall signal. No acute vertebral body compression fractures. Spinal Cord: Conus medullaris terminates at the L1 level. Visualized cord demonstrates normal signal and size. Paraspinous Soft Tissues: No paravertebral masses. 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 T11-T12: No significant disc bulge. The foramina and central canal are patent. T12-L1: Diffuse disc bulge and disc osteophytes with mild bilateral foraminal stenosis. The central canal has mild stenosis. L1-L2: Diffuse disc bulge, disc osteophytes, and facet hypertrophy cause severe bilateral foraminal stenosis. The central canal has moderate stenosis. L2-L3: Diffuse disc bulge with a central protrusion, disc osteophytes, and facet hypertrophy cause severe bilateral foraminal stenosis. The central canal has severe stenosis. L3-L4: Diffuse disc bulge, disc osteophytes, and facet hypertrophy cause mild bilateral foraminal stenosis. The central canal has mild stenosis. L4-L5: Diffuse disc bulge, disc osteophytes, and facet hypertrophy cause severe bilateral foraminal stenosis. The central canal is patent. L5-S1: No significant disc bulge. Facet hypertrophy on the left causes moderate left foraminal stenosis. The right foramen is patent. The central canal is patent. IMPRESSION: 1. Severe multilevel lumbar spondylosis causing foraminal and central canal stenosis as described above. 2. Dextroscoliosis with a Yadav angle of 36?. Dictated by: Pierre Tamayo M.D. on 08/07/2022 at 14:36 Approved by: Pierre Tamayo M.D. on 08/07/2022 at 14:45
== END ==
PROVIDERS: Family Provider Family Medicine; PCP Family Medicine; Referring Provider Family Medicine; Visit Provider Family Medicine
DX: M47.27 Other spondylosis with radiculopathy, lumbosacral region (principal); M47.26 Other spondylosis with radiculopathy, lumbar region; M48.061 Spinal stenosis, lumbar region without neurogenic claudication; M48.07 Spinal stenosis, lumbosacral region; M54.50 Low back pain, unspecified
CPT/HCPCS: 72148

== ENCOUNTER 2022-09-17 09:55 | Outpatient (CLI) | payer MEDICARE, OTHER, SELFPAY ==
[2022-09-17] VITALS (10 sets, daily range): BP systolic 94–129; BP diastolic 50–69; PULSE 81–92; RESP 13–20; TEMP 36.2; O2SAT 94–97
--- NOTE | 2022-09-17 09:56 | DI.RAD.S_ITS ---
PROCEDURE: PAIN SI JOINT INJECTION JOSIE INDICATIONS: JOINT DYSFUNCTION COMPARISON: [facility], MR, MR LUMBAR SPINE WO CON, 08/07/2022, 13:16. FINDINGS: On these intraprocedural images, there spinal needles are seen involving both sacroiliac joints. Appropriate position of the tip of the needle was confirmed by injection of a small amount of iodinated contrast. IMPRESSION: Successful bilateral sacroiliac joint injection. Dictated by: Sarbjit Humphreys M.D. on 09/18/2022 at 14:01 Approved by: Sarbjit Humphreys M.D. on 09/18/2022 at 14:01
[2022-09-17] MEDS: methylPREDNISolone acetate 80 MG/ML VIAL INJ (10:33)
[2022-09-17] MEDS: BUPIVACAINE 0.5% (PF) 30 ML VIAL INJ (10:33)
[2022-09-17] MEDS: MIDAZOLAM 2 MG/2 ML VIAL IV (10:43)
--- NOTE | 2022-09-17 14:27 | P.PCN_ITS ---
Date/Time/Diagnoses Date of procedure: 09/17/22 Time of procedure: 10:30 Procedure Notes Physician: Ramón Baeza Total Fluoroscopy time (seconds): 65 Total sedation minutes: 28 Procedure in detail & Post-procedure care: Bilateral Sacroiliac Joint Injection Comment: ProHance was used instead of Isovue due to iodine allergy. Patient reports allergic reaction involved itching and swelling of mouth and throat. Indications: Ketty presents for treatment of SI joint dysfunction with low back/buttock pain. Preoperative diagnosis: Bilateral SI joint dysfunction Postoperative diagnosis: Same Focused Examination: Ax3 Mood and affect are normal Vital Signs: VSS ASA: 2 Consent: Following review of allergies and potential side effects/complications, including, but not necessarily limited to, infection, allergic reaction, local tissue breakdown, stroke, temporary or permanent nerve injury, paralysis, and possible , the patient indicated that they understood and agreed to proceed.? An informed consent document was signed by the patient, witnessed by a nurse and placed in the patient's chart.? Additionally, other treatment options including medications and physical therapy were reviewed with the patient. All questions were answered. Site was then marked. Anesthesia: After review of previous anesthetic history and IV conscious sedation, the patient was deemed safe to proceed with today's procedure with IV conscious sedation. IV sedation was accomplished with midazolam 2 mg administered by the RN after order by Dr. Baeza. Sedation was titrated to patient comfort during the course of the procedure. Patient remained responsive to all verbal commands. Position: Prone Monitoring: NIBP, Pulse oximetry, 3 lead EKG Needle used: 22 ga, 3.5 inch spinal Contrast: 4 mL ProHance Injectate: 40 mg Depomedrol with 2 mL 0.5% Bupivacaine per side Technique: The skin was prepped with chloraprep and then draped in a sterile fashion. Time out was performed as per protocol. Oxygen applied via NC. Skin and subcutaneous structures of the needle entry site was then infiltrated with 5 mL of lidocaine 1%. Under AP and lateral fluoroscopic control, the spinal needle was guided into the right sacroiliac joint. 2 mL contrast was injected and was consistent with intra-articular placement. There was no evidence for intravascular uptake. After negative aspiration, the above-mentioned injectate was then slowly administered and the needle withdrawn. The patient expressed no unusual discomfort or paresthesias during the injection. Skin and subcutaneous structures of the needle entry site was then infiltrated with 5 mL of lidocaine 1%. Under AP and lateral fluoroscopic control, the spinal needle was guided into the left sacroiliac joint. 2 mL contrast was injected and was consistent with intra-articular placement. There was no evidence for intrav ascular uptake. After negative aspiration, the above-mentioned injectate was then slowly administered and the needle withdrawn. The patient expressed no unusual discomfort or paresthesias during the injection. Band-Aids applied to injection sites. EBL: less than 1 ml Complications: None Post Procedure: Patient was taken to the recovery and monitored. The patient was provided a Pain Log to continue to record the patient's response to the target- specific procedure prior to the patient's follow-up visit with the referring physician. Patient was stable upon discharge. Detailed post procedure instructions were provided. Patient was asked to call in the event of worsening pain, fever, weakness, numbness or bladder or bowel incontinence.
== END 2022-09-17 11:20 | disposition home or self-care (01) ==
PROVIDERS: Family Provider Family Medicine; PCP Family Medicine; Referring Provider Anesthesiology; Visit Provider Anesthesiology
DX: M53.3 Sacrococcygeal disorders, not elsewhere classified (principal); M54.50 Low back pain, unspecified; T78.49XS Other allergy, sequela
CPT/HCPCS: 27096; 82962; 99152; 99153; J1030; J2250

== ENCOUNTER → 2022-10-15 12:12 | Outpatient (CLI) | payer MEDICARE, OTHER, SELFPAY ==
--- NOTE | 2022-10-15 | DI.CT.S_ITS ---
PROCEDURE: CT CHEST WO CON INDICATIONS: Solitary pulmonary nodule TECHNIQUE: Noncontrast 2.0-2.5 mm thick sections acquired from the pulmonary apices to the posterior costophrenic angles. 7 mm thick axial MIP and 5 mm coronal and sagittal reformats were then acquired. A low radiation dose technique was utilized. COMPARISON: CT 07/12/2021. FINDINGS: Image quality: Diagnostic, given the low radiation dose technique. Lungs and pleura: Multiple juxtapleural nodules, stable from prior and most likely representing intrapulmonary lymph nodes. Examples include the stable 7 mm solid nodule in the posterior left lower lobe (3/194) and the 6 mm solid nodule in the anterior left lower lobe (series 3, image 94). Mediastinum: Heart size is normal. No pericardial effusion. No mediastinal adenopathy by size criteria. Thoracic aorta and central pulmonary arteries are normal in size. Esophagus is normal in caliber. Large hiatal hernia. Bones and chest wall: No suspicious bony lesions. No vertebral body compression fractures. No axillary or supraclavicular adenopathy by size criteria. Thyroid gland is unremarkable . Abdomen: Visualized upper abdomen solid organs and bowel loops appear normal in the absence of contrast. IMPRESSION: Stable pulmonary nodules, which are statistically benign. Large hiatal hernia. Fleischner Society criteria for SOLID lung nodule followup. Nodule size (mm)Low-risk patientHigh-risk patient<6 (single or multiple)No routine followup.Optional CT at 12 months. 6-8 (single or multiple)CT at 6-12 months, then optional CT at 18-24 mo.CT at 6-12 months, then CT at 18-24 months. >8 (single)CT at 3 months, PET-CT, or biopsy. Same as for low-risk pts. >8 (multiple)CT at 3-6 months, then optional CT at 18-24 mo.CT at 3-6 months, then CT at 18-24 months. Fleischner Society criteria for SUB-SOLID lung nodule followup. Solitary pure ground-glass nodules<6 mm (ground glass or part solid)No followup needed. 6 mm or larger (ground glass)CT at 6-12 months to confirm persistence, then CT every 2 years until 5 years.6 mm or larger (part solid)CT at 3-6 months to confirm persistence, then annual CT until 5 years if unchanged and solid component remains <6 mm. Multiple sub-solid nodules<6 mmCT at 3-6 months, then CT consider at 2 & 4 years for high risk patients. [address] at 3-6 months. Subsequent management based on most suspicious lesions. Recommendations do not apply to lung cancer screening, patients with immunosuppression, or patients with known primary cancer. Dictated by: Noah Suarez M.D. on 10/15/2022 at 16:32 Approved by: Noah Suarez M.D. on 10/15/2022 at 16:35
== END ==
PROVIDERS: Family Provider Family Medicine; PCP Family Medicine; Referring Provider Family Medicine; Visit Provider Family Medicine
DX: R91.8 Other nonspecific abnormal finding of lung field (principal); K44.9 Diaphragmatic hernia without obstruction or gangrene
CPT/HCPCS: 71250

== ENCOUNTER → 2022-11-26 13:31 | Outpatient (CLI) | payer MEDICARE, OTHER, SELFPAY ==
--- NOTE | 2022-11-26 | DI.MG.S_ITS ---
BILATERAL DIGITAL SCREENING MAMMOGRAM 3D/2D WITH CAD: 11/26/2022 CLINICAL: Routine screening. Family history of breast cancer. Comparison is made to exams dated: 08/01/2021 mammogram, 05/18/2020 mammogram, and 08/25/2017 mammogram - [facility]. There are scattered areas of fibroglandular density in both breasts (category b / 25%-50% glandular tissue). Current study was also evaluated with a Computer Aided Detection (CAD) system. No significant masses, calcifications, or other findings are seen in either breast. There has been no significant interval change. IMPRESSION: NEGATIVE There is no mammographic evidence of malignancy. A 1 year screening mammogram is recommended. Based on the Tyrer Cuzick model (a risk assessment model) the patient's lifetime risk is 2.9% and her 10 year risk is 2.6%. According to the ACR, ACS, and NCCN guidelines, an annual breast MRI exam along with mammogram is recommended if the patient's lifetime risk is 20% or greater. This exam was interpreted at Station ID: [id number]. NOTE: For mammograms, a report in lay terms will be sent to the patient. Approximately 15% of breast malignancies will not be visualized mammographically. In the management of a palpable breast mass, a negative mammogram must not discourage biopsy of a clinically suspicious lesion. Electronically Signed By: Erin vargas/mayco:11/26/2022 16:44:58 letter sent: Normal Exam ACR BI-RADS Category 1: Negative [id number]
== END ==
PROVIDERS: Family Provider Family Medicine; PCP Family Medicine; Referring Provider Family Medicine; Visit Provider Family Medicine
DX: Z12.31 Encounter for screening mammogram for malignant neoplasm of breast (principal); Z80.3 Family history of malignant neoplasm of breast
CPT/HCPCS: 77063; 77067

== ENCOUNTER → 2023-01-09 10:06 | Outpatient (CLI) | payer MEDICARE, OTHER, SELFPAY | PROVIDERS: Family Provider Family Medicine; PCP Family Medicine; Referring Provider Family Medicine; Visit Provider Family Medicine | DX: M54.16 Radiculopathy, lumbar region (principal); G62.9 Polyneuropathy, unspecified | CPT/HCPCS: 95886; 95910 ==

== ENCOUNTER 2023-02-26 09:07 | Outpatient (CLI) | payer MEDICARE, OTHER, SELFPAY ==
[2023-02-26] VITALS (8 sets, daily range): BP systolic 105–141; BP diastolic 55–75; PULSE 83–94; RESP 12–23; TEMP 36.1; O2SAT 95–98
--- NOTE | 2023-02-26 09:08 | DI.RAD.S_ITS ---
PROCEDURE: PAIN L INTERLAMINAR/CAUDAL INJ INDICATIONS: SPINAL STENOSIS COMPARISON: [facility], MR, MR LUMBAR SPINE WO CON, 08/07/2022, 13:16. [facility], CR, XR LUMBAR SPINE 2-3V, 09/04/2021, 15:17. FINDINGS: Fluoroscopic spot filming was performed to verify placement of a spinal needle at the L2-L3 level, as labeled on the films. IMPRESSION: Intraprocedural examination within normal limits. Dictated by: Sarbjit Humphreys M.D. on 02/26/2023 at 13:22 Approved by: Sarbjit Humphreys M.D. on 02/26/2023 at 13:23
[2023-02-26] MEDS: MIDAZOLAM 2 MG/2 ML VIAL 1 MG IV (09:35)
[2023-02-26] MEDS: DEXAMETHASONE 10 MG/ML VIAL INJ (09:44)
--- NOTE | 2023-02-26 12:00 | P.PCN_ITS ---
Date/Time/Diagnoses Date of procedure: 02/26/23 Time of procedure: 09:30 Procedure Notes Physician: Ramón Baeza Total Fluoroscopy time (seconds): 11 Total sedation minutes: 19 Procedure in detail & Post-procedure care: L2-3 Interlaminar Epidural Steroid Injection Indications: Ketty is presenting for treatment of lumbar radiculopathy with low back and leg pain. Preoperative diagnosis: Lumbar radiculopathy Postoperative diagnosis: Same Focused Examination: Ax3 Mood and affect are normal Vital Signs: VSS ASA: 2 Consent: Following review of allergies and potential side effects/complications, including, but not necessarily limited to, infection, allergic reaction, local tissue breakdown, stroke, temporary or permanent nerve injury, paralysis, and possible , the patient indicated that they understood and agreed to pr oceed.? An informed consent document was signed by the patient, witnessed by a nurse and placed in the patient's chart.? Additionally, other treatment options including medications and physical therapy were reviewed with the patient. All questions were answered. Site was then marked. Anesthesia: After review of previous anesthetic history and IV conscious sedation, the patient was deemed safe to proceed with today's procedure with IV conscious sedation. IV sedation was accomplished with midazolam 1 mg administered by the RN after order by Dr. Baeza. Sedation was titrated to patient comfort during the course of the procedure. Patient remained responsive to all verbal commands. Position: Prone Monitoring: NIBP, Pulse oximetry, 3 lead EKG Needle used: 18 G 3.5? Tuohy Contrast: None Injectate: Dexamethasone 10 mg with normal saline 2 mL Technique: The skin was prepped with chloraprep and then draped in a sterile fashion. Time out was performed as per protocol. Oxygen applied via NC. Skin and subcutaneous structures of the needle entry site was then infiltrated with 3 mL of lidocaine 1%. Under AP, lateral and contralateral oblique fluoroscopic control, the Tuohy needle was guided into the L2-3 epidural space. The space was accessed with loss of resistance technique. Contrast was not injected due to patient history of severe allergic reaction. Test dose with 2 mL of 1.5% lidocaine with 1:200,000 epinephrine was used instead of contrast. There was no evidence for intravascular or intrathecal uptake, lower extremities did not show signs of weakness and there were no vital sign changes. After negative aspiration, the above-mentioned injectate was then slowly administered and the needle withdrawn. The patient expressed no unusual discomfort or paresthesias during the injection. Band-Aids applied to injection sites. EBL: less than 1 ml Complications: None Post Procedure: Patient was taken to the recovery and monitored. The patient was provided a Pain Log to continue to record the patient's response to the target- specific procedure prior to the patient's follow-up visit with the referring physician. Patient was stable upon discharge. Detailed post procedure instructions were provided. Patient was asked to call in the event of worsening pain, fever, weakness, numbness or bladder or bowel incontinence.
== END 2023-02-26 10:10 | disposition home or self-care (01) ==
LOC: RAD 09:08
PROVIDERS: Family Provider Family Medicine; PCP Family Medicine; Referring Provider Anesthesiology; Visit Provider Anesthesiology
DX: M54.16 Radiculopathy, lumbar region (principal)
CPT/HCPCS: 62323; 82962; 99152; J1100; J2250

== ENCOUNTER → 2023-03-26 13:07 | Outpatient (CLI) | payer MEDICARE, OTHER, SELFPAY ==
--- NOTE | 2023-03-26 13:12 | DI.RAD.S_ITS ---
PROCEDURE: XR HIP W PEL IF DONE JOSIE MIN 4V INDICATIONS: Left hip pain TECHNIQUE: AP pelvis with lateral view(s) of the both hips. COMPARISON: [facility], , XR HIP W PEL IF DONE LT 2V, 08/27/2021, 12:48. FINDINGS: Bones: Severe degenerative changes of the left hip and mild degenerative changes of the right hip again seen. Slight axial migration of the femoral head. Soft tissues: No suspicious calcifications. IMPRESSION: Severe left and mild right degenerative changes. These were seen in August of 2021. If there is high concern for further derangement, consider MRI evaluation. Dictated by: Heri Cabrera M.D. on 03/26/2023 at 17:22 Approved by: Heir Cabrera M.D. on 03/26/2023 at 17:24
== END ==
PROVIDERS: Family Provider Family Medicine; PCP Family Medicine; Referring Provider Anesthesiology; Visit Provider Anesthesiology
DX: M25.552 Pain in left hip (principal)
CPT/HCPCS: 73522

== ENCOUNTER 2023-06-30 09:37 | Emergency (ER) | payer MEDICARE, OTHER, SELFPAY ==
[2023-06-30] VITALS (7 sets, daily range): BP systolic 133–158; BP diastolic 59–72; PULSE 69–89; RESP 15–22; TEMP 36.6; O2SAT 94–99; BMI 33.3
--- NOTE | 2023-06-30 09:43 | ED.EXTPRO ---
HPI - Extremity Problem General Chief complaint: Syncope Stated complaint: fall, ladder fell on lt arm Time Seen by Provider: 06/30/23 09:40 History of Present Illness HPI Narrative: 72-year-old female who arrives by private vehicle. She says that yesterday she was in her kitchen had just taken some liquid ibuprofen and had the sudden onset of epigastric pain. She syncopized. States the ladder that she had in her kitchen fell onto her. She has not believe that she had any head neck injury, only painful complaint is of her right shoulder. Prior to syncope she has not had nausea vomiting fevers or other acute medical symptoms. She does not have syncope typically, she has not had hematemesis or melena she has not felt lightheaded since that event. She is having right shoulder pain from the fall or from the ladder striking her. She has not having chest pain or difficulty breathing. She is not anticoagulated. Related Data Home Medications Medication Instructions Recorded Confirmed levocetirizine 5 mg 07/26/19 04/28/23 DANTE 100 mg-theanine 100 1 cap PO Pinched nerve in back 09/05/22 04/28/23 mg-ashwagandha extract 225 mg capsule atorvastatin 10 mg tablet 10 mg PO DAILY 09/05/22 04/28/23 bupropion HCl 100 mg tablet,12 hr 100 mg PO BEDTIME 09/05/22 04/28/23 sustained-release celecoxib 200 mg capsule 200 mg PO DAILY 09/05/22 04/28/23 escitalopram oxalate 10 mg tablet 10 mg PO DAILY 09/05/22 04/28/23 estradiol 0.5 mg tablet 0.5 mg PO DAILY 09/05/22 04/28/23 fluticasone 250 mcg-salmeterol 50 1 inh inhalation PRN 09/05/22 04/28/23 mcg/dose blistr powdr for inhalation (Advair Diskus) fluticasone propionate 110 1 inh inhalation PRN 09/05/22 04/28/23 mcg/actuation HFA aerosol inhaler (Flovent HFA) folic acid 1 mg tablet 1 mg PO DAILY 09/05/22 04/28/23 glipizide 2.5 mg tablet, extended 2.5 mg PO DAILY 09/05/22 04/28/23 release 24 hr hydrochlorothiazide 25 mg tablet 25 mg PO DAILY 09/05/22 04/28/23 losartan 50 mg tablet 50 mg PO DAILY 09/05/22 04/28/23 pantoprazole 40 mg tablet,delayed 40 mg PO DAILY 09/05/22 04/28/23 release gabapentin 100 mg capsule 500 mg PO BEDTIME 02/04/23 04/28/23 montelukast 5 mg chewable tablet 5 mg PO DAILY 04/08/23 04/28/23 Previous Rx's Medication Instructions Recorded diclofenac sodium 1 % topical gel 2 g topical QID PRN pain #100 grams 08/27/21 (Voltaren Arthritis Pain) lidocaine 5 % topical patch 1 patch topical DAILY PRN pain #15 08/27/21 ea oxycodone-acetaminophen 5 mg-325 1 tab PO Q8H PRN pain #14 tabs 08/27/21 mg tablet (Percocet) hydrocodone 5 mg-acetaminophen 325 1 tab PO Q6H PRN pain #14 tabs 06/30/23 mg tablet Allergies Allergy/AdvReac Type Severity Reaction Status Date / Time iodine Allergy Unknown Swelling Verified 04/28/23 15:04 of Lip/Tongue/Throat Penicillins Allergy Unknown Verified 04/28/23 15:04 codeine AdvReac Unknown Vomiting Verified 04/28/23 15:04 meperidine AdvReac Unknown Vomiting Verified 04/28/23 15:04 morphine AdvReac Unknown Vomiting Verified 04/28/23 15:04 Patient History Medical History Greater trochanteric bursitis of left hip Left knee pain Osteoarthritis of left hip Left hip pain Scoliosis Lumbar spondylosis Sacrococcygeal disorders, not elsewhere classified Spinal stenosis, lumbar region with neurogenic claudication Low back pain Hyperlipidemia HTN (hypertension) Diabetes Surgical History History of cholecystectomy H/O section Social History household members: spouse Smoking Status: Never smoker alcohol intake: never Smoking Status: Never smoker Substance Use Type: does not use Exam Narrative Exam Narrative: Alert, no acute distress HEENT: Normocephalic, atraumaitic moist mucus membranes Neck: Supple no midline tenderness Lungs: Clear to ascultaion, no respiratory distress Heart: Regular rhythm and rate no murmur Abdomen: Normal bowel sounds, soft and nontender, no mass Extremeties: No deformity of the right shoulder. She has tenderness over the proximal humerus and AC joint and pain with range of motion. Distal neurovascular exam is intact. Neuro: Alert and oriented, normal speech moves x4 Initial Vital Signs Initial Vital Signs: Vital Signs Temperature 97.8 F 06/30/23 09:45 Pulse Rate 89 06/30/23 09:45 Respiratory Rate 22 06/30/23 09:45 Blood Pressure 142/68 H 06/30/23 09:45 Pulse Oximetry 99 06/30/23 09:45 Oxygen Delivery Method Room Air 06/30/23 09:45 Course Orders Ordered: ED Orders 06/30/23 09:45 EKG-12 Lead Stat 06/30/23 09:51 Chest [XR chest 1V] Stat XR shoulder RT min 2V Stat 06/30/23 09:57 Complete Blood Count AUTO DIFF Stat Comprehensive Metabolic Panel Stat Magnesium Stat Troponin I Stat Vital Signs Vital signs: Vital Signs - 8 hr 06/30/23 09:45 Temperature 97.8 F Pulse Rate 89 Respiratory Rate 22 Blood Pressure 142/68 H Pulse Oximetry 99 Oxygen Delivery Method Room Air MDM - Extremity (Nontraumatic) Lab Data Lab results narrative: CBC with diff, troponin, CMP and magnesium are unremarkable 06/30/23 09:57 06/30/23 09:57 Labs: Lab Results 06/30/23 Range/Units 09:57 WBC 5.8 (4.5-11.0) X10^3/uL RBC 4.02 (4.0-5.2) X10^6/uL Hgb 11.1 L (12.0-16.0) g/dL Hct 33.7 L (36-46) % MCV 84.0 (80-100) fL MCH 27.7 (26-34) PG MCHC 33.0 (30-36) % RDW 15.8 H (11.6-14.8) % Plt Count 295 (150-400) X10^3/uL Neut % (Auto) 72.8 (50-75) % Lymph % (Auto) 17.3 L (25-40) % Weld % (Auto) 6.8 (3-14) % Eos % (Auto) 2.6 (2-4) % Baso % (Auto) 0.5 (0-2) % Neut # (Auto) 4200 (7412-2596) /uL Lymph # (Auto) 1000 L (8913-6390) /uL Weld # (Auto) 400 (0-900) /uL Eos # (Auto) 100 (0-450) /uL Baso # (Auto) 0 (0-100) /uL Sodium 135 L (137-145) mmol/L Potassium 4.0 (3.4-5.1) mmol/L Chloride 99 (98-107) mmol/L Carbon Dioxide 28 (22-32) mmol/L BUN 26 H (7-17) mg/dL Creatinine 1.33 H (0.52-1.04) mg/dL Estimated GFR 42 L (>60) mL/min BUN/Creatinine Ratio 19.5 (6-22) Glucose 114 H (80-110) mg/dL Calcium 9.5 (8.4-10.2) mg/dL Magnesium 2.1 (1.6-2.3) mg/dL Total Bilirubin 0.6 (0.2-1.3) mg/dL AST 31 (14-36) IU/L ALT 19 (<35) IU/L Alkaline Phosphatase 83 (38-126) U/L Troponin I < 0.012 (0.01-0.034) ng/mL Total Protein 8.1 (6.3-8.2) g/dL Albumin 4.3 (3.5-5.0) g/dL Globulin 3.8 (1.7-4.1) g/dL Albumin/Globulin Ratio 1.1 (1.0-2.8) Imaging Data r shoulder: My Impression: No fracture or dislocation on my independent review Radiologist's Impression: PROCEDURE: XR SHOULDER RT MIN 2V INDICATIONS: shoulder injury TECHNIQUE: 3 views of the shoulder were acquired. COMPARISON: None. FINDINGS: Bones: No acute fractures. Borderline widening of the acromioclavicular and coracoclavicular intervals. No suspicious bony lesions. Visualized ribs appear intact. Soft tissues: No suspicious soft tissue calcifications. IMPRESSION: No acute fracture. Borderline widening of the right acromioclavicular and coracoclavicular intervals which may represent sequela acromioclavicular joint separation. Recommend clinical correlation. Consider further evaluation with dedicated imaging of the right AC joint with and without weights. Dictated by: Payam Lim M.D. on 06/30/2023 at 11:08 Approved by: Payam Lim M.D. on 06/30/2023 at 11:09 Chest x-ray: My Impression: No acute disease on my independent review Radiologist's Impression: Radiology reports no acute cardiovascular disease ECG Data Interpretation: ECG shows normal sinus rhythm at 74 intervals are normal no acute ST segment change no evidence of previous infarction, normal EKG MDM Narrative Medical decision making narrative: 72-year-old female seen with a fall and shoulder pain after a syncopal event yesterday. No head injury, no cervical spine injury. Syncopal event may have been related to taking a medication (ibuprofen) and GI distress which would typically be vasovagal. Workup today is reassuring I do not think she has anemia or significant metabolic disturbance and EKG is normal. Had right shoulder pain also, there may be a mild AC separation no fracture or dislocation and distal neurovascular exam is intact. I continued her regular outpatient medications recommended the addition of acetaminophen for pain and wrote a prescription for a few [place]. He is also provided with a sling for comfort and admonished to do gentle ctjxu-ny-[id number] exercises to prevent frozen shoulder Discharge Plan Departure Patient Disposition: Home Clinical Impression: Syncope Qualifiers: Syncope type: unspecified Qualified Code(s): R55 - Syncope and collapse Separation of right acromioclavicular joint Qualifiers: Encounter type: initial encounter Qualified Code(s): S43.101A - Unspecified dislocation of right acromioclavicular joint, initial encounter Instructions: DI for Syncope in Adults (Fainting) Activity Restrictions/Additional Instructions: Emergency department workup today is reassuring. I think it is safe for you to go home. If you have more episodes of fainting or lightheadedness or if you are having chest pain or shortness of breath recheck in the emergency department. You may have a mild separation of the right acromioclavicular joint. You can use the provided sling for comfort. As we discussed, it is important for you to get your arm out of this and do gentle [id number] exercises with the right arm to prevent a frozen shoulder. You can use Tylenol as needed for pain. I have also provided a prescription for just a few [place] to use for more severe pain. Acetaminophen (tylenol) should be dosed at 650 mg every 4 hours or 1000mg every 6 hours. It can be given as needed but is more effective if given on a scheduled basis. Total daily dose should not exceed 4,000mg. If you were prescribed norco (hydrocodone/apap) or percocet (oxycodone/apap) each tablet of these contains 325 mg of acetaminophen and should be included when calculating daily dose. Make an appointment see your primary care provider for a recheck soon. Prescriptions: New hydrocodone-acetaminophen 5-325 mg tablet 1 tab PO Q6H PRN (Reason: pain) Qty: 14 0RF No Action levocetirizine 5 mg 5 mg diclofenac sodium [Voltaren Arthritis Pain] 1 % gel 2 g topical QID PRN (Reason: pain) Qty: 100 0RF Rx Instructions: apply to single elbow, wrist or hand; for hand includes palm/fingers/back of hand oxycodone-acetaminophen [Percocet] 5-325 mg tablet 1 tab PO Q8H PRN (Reason: pain) Qty: 14 0RF lidocaine 5 % adhesive patch,medicated 1 patch topical DAILY PRN (Reason: pain) Qty: 15 0RF Rx Instructions: leave on most painful area for up to 12 hrs celecoxib 200 mg capsule 200 mg PO DAILY bupropion HCl 100 mg tablet sustained-release 12 hr 100 mg PO BEDTIME glipizide 2.5 mg tablet extended release 24hr 2.5 mg PO DAILY fluticasone propion-salmeterol [Advair Diskus] 250-50 mcg/dose blister with device 1 inh inhalation PRN atorvastatin 10 mg tablet 10 mg PO DAILY escitalopram oxalate 10 mg tablet 10 mg PO DAILY fluticasone propionate [Flovent HFA] 110 mcg/actuation HFA aerosol inhaler 1 inh inhalation PRN pantoprazole 40 mg tablet,delayed release (DR/EC) 40 mg PO DAILY hydrochlorothiazide 25 mg tablet 25 mg PO DAILY folic acid 1 mg tablet 1 mg PO DAILY losartan 50 mg tablet 50 mg PO DAILY estradiol 0.5 mg tablet 0.5 mg PO DAILY [id number]-[id number]-hvojemiqwkf xt 100-100-225 mg capsule 1 cap PO gabapentin 100 mg capsule 500 mg PO BEDTIME Patient Comments: PATIENT REPORTS 2 IN AM, 3 AT BEDTIME montelukast 5 mg tablet,chewable 5 mg PO DAILY Referrals: Alisha Novoa MD [Primary Care Provider] - Stand Alone Forms: Patient Portal/API
--- NOTE | 2023-06-30 09:51 | DI.RAD.S_ITS ---
PROCEDURE: XR SHOULDER RT MIN 2V INDICATIONS: shoulder injury TECHNIQUE: 3 views of the shoulder were acquired. COMPARISON: None. FINDINGS: Bones: No acute fractures. Borderline widening of the acromioclavicular and coracoclavicular intervals. No suspicious bony lesions. Visualized ribs appear intact. Soft tissues: No suspicious soft tissue calcifications. IMPRESSION: No acute fracture. Borderline widening of the right acromioclavicular and coracoclavicular intervals which may represent sequela acromioclavicular joint separation. Recommend clinical correlation. Consider further evaluation with dedicated imaging of the right AC joint with and without weights. Dictated by: Payam Lim M.D. on 06/30/2023 at 11:08 Approved by: Payam Lim M.D. on 06/30/2023 at 11:09
--- NOTE | 2023-06-30 09:51 | DI.RAD.S_ITS ---
PROCEDURE: XR CHEST 1V INDICATIONS: syncope TECHNIQUE: One view of the chest was acquired. COMPARISON: [facility], CR, XR CHEST 2V, 06/05/2021, 12:03. FINDINGS: Surgical changes and devices: None. Lungs and pleura: Lungs are clear. No pleural effusions or pneumothorax. Mediastinum: Mediastinal contours appear normal. Heart size is normal. Bones and chest wall: No suspicious bony lesions. Overlying soft tissues appear unremarkable. IMPRESSION: No acute cardiopulmonary abnormalities or focal airspace disease. Dictated by: Payam Lim M.D. on 06/30/2023 at 11:09 Approved by: Payam Lim M.D. on 06/30/2023 at 11:09
[2023-06-30 10:06] LABS: Add Manual Diff / Slide Review NO; Basophils Absolute Auto 0 /uL (0-100); Basophils Percent Auto 0.5 % (0-2); Eosinophils Absolute Auto 100 /uL (0-450); Eosinophils Percent Auto 2.6 % (2-4); Hematocrit 33.7 % (36-46); Hemoglobin 11.1 g/dL (12.0-16.0); Lymphocytes Absolute Auto 1000 /uL (1100-4500); Lymphocytes Percent Auto 17.3 % (25-40); Mean Corpuscular Hemoglobin 27.7 PG (26-34); Monocytes Absolute Auto 400 /uL (0-900); Monocytes Percent Auto 6.8 % (3-14); Neutrophils Absolute Auto 4200 /uL (1500-7000); Neutrophils Percent Auto 72.8 % (50-75); Platelet Count 295 X10^3/uL (150-400); Red Blood Cell Count 4.02 X10^6/uL (4.0-5.2); Red Cell Distribution Width 15.8 % (11.6-14.8); White Blood Cell Count 5.8 X10^3/uL (4.5-11.0)
[2023-06-30 10:18] LABS: Alanine Aminotransferase 19 IU/L (<35); Albumin 4.3 g/dL (3.5-5.0); Albumin Globulin Ratio 1.1 (1.0-2.8); Alkaline Phosphatase 83 U/L (38-126); Aspartate Aminotransferase 31 IU/L (14-36); BUN Creatinine Ratio 19.5 (6-22); Bilirubin Total 0.6 mg/dL (0.2-1.3); Blood Urea Nitrogen 26 mg/dL (7-17); Calcium 9.5 mg/dL (8.4-10.2); Carbon Dioxide 28 mmol/L (22-32); Chloride 99 mmol/L (98-107); Estimated Glomerular Filt Rate 42 mL/min (>60); Globulin 3.8 g/dL (1.7-4.1); Glucose 114 mg/dL (80-110); HEMOLYSIS < 15 (0-50); Magnesium 2.1 mg/dL (1.6-2.3); Sodium 135 mmol/L (137-145); Total Protein 8.1 g/dL (6.3-8.2)
[2023-06-30 10:29] LABS: Troponin I < 0.012 ng/mL (0.01-0.034)
--- NOTE | 2023-06-30 10:45 | PC.NURSE ---
Pt came to the ed today because she was using a step ladder yesterday and fell. She recalls that she felt a sharp pain in her abd, felt dizzy, passed out, landed on her shoulder and woke up with the step ladder on top of her. Pt denies hitting her head. Pt reports that she has not ever padded out before and she has not felt dizzy or lightheaded since. Pt c/o pain in her right shoulder but denies having any abd pain today. SOB noted when pt ambulating to room, but she states that is normal for her. Denies any cp, n/v. A&Ox4. TURNING SANDER TENDER intact. Does not take blood thinners.
== END 2023-06-30 11:54 | disposition home or self-care (01) ==
PROVIDERS: Emergency Provider Emergency Medicine; Family Provider Family Medicine; PCP Family Medicine
DX: R55 Syncope and collapse (principal); S43.101A Unspecified dislocation of right acromioclavicular joint, initial encounter; Z79.899 Other long term (current) drug therapy
CPT/HCPCS: 36415; 71045; 73030; 80053; 83735; 84484; 85025; 93005; 93010; 99283; 99284

== ENCOUNTER → 2023-08-07 | Outpatient (CLI) | payer MEDICARE, OTHER, SELFPAY ==
--- NOTE | 2023-08-07 14:23 | DI.ECHO.S_ITS ---
[place] [facility]---------+ [facility] +---------+ : : [address] : : : : [id number] : : : : Phone: [phone]---------+ Echocardiogram Report + + :Name: EUFEMIA DELEON Study Date: 08/07/2023 Height: 66 in : :[facility] ReadingLocation: Weight: 210 lb : : Gender: Female BSA: 2.0 m2 : :: 1950 Age: 73 yrs BP: 137/78 mmHg: :Reason For Study: SYNCOPE AND COLLAPSE : :Ordering Physician: CRISTINA, : :CHRISSIE Performed By: Vance Hernandez : :Referring: CHRISSIE EVANS : + + Interpretation Summary The ejection fraction is estimated to be 60-65%. Diastolic parameters suggest probable normal left ventricular diastolic function and normal filling pressures. The right ventricle is normal in size and function. There is trace aortic regurgitation. There is mild tricuspid regurgitation. Right ventricular systolic pressure is estimated to be 30 mmHg plus the clinically estimated CVP which cannot be estimated on this exam. Compared to the prior study dated 07/30/2021, no significant change. Procedure: A two-dimensional transthoracic echocardiogram with color flow and Doppler was performed. The study quality was technically adequate. Comparison is made with the echocardiogram of 07/30/2021. The patient was in normal sinus rhythm during the exam. The heart rate ranged between 83-93 bpm during the study. Left Ventricle: The left ventricle is normal in size and wall thickness. The ejection fraction is estimated to be 60-65%. Diastolic parameters suggest probable normal left ventricular diastolic function and normal filling pressures. Right Ventricle: The right ventricle is normal in size and function. Atria: The left atrial size is normal. Right atrial size is normal. Mitral Valve: The mitral valve is normal in structure and function. There is no mitral valve stenosis. There is no mitral regurgitation noted. Aortic Valve: The aortic valve is not well visualized. There is no aortic valve stenosis. There is trace aortic regurgitation. Tricuspid Valve: The tricuspid valve is normal in structure and function. There is no tricuspid stenosis. There is mild tricuspid regurgitation. Right ventricular systolic pressure is estimated to be 30 mmHg plus the clinically estimated CVP which cannot be estimated on this exam. Pulmonic Valve: The pulmonic valve is not well visualized. There is no pulmonic valvular stenosis. There is no pulmonic valvular regurgitation. Great Vessels: The aortic root is normal size. The dimensions of the ascending aorta are normal. The inferior vena cava was not well visualized. Pericardium/ Pleura There is no pericardial effusion. There is no pleural effusion. MMode/2D Measurements & Calculations LVIDd: 3.9 cm LVOT diam: 1.9 cm LVIDs: 2.6 cm Ao root diam: 3.0 cm FS: 34.6 % asc Aorta Diam: 3.4 cm IVSd: 1.1 cm Ao Arch Diam (Prox Trans): 2.7 cm LVPWd: 1.1 cm LV rachel. diameter/BSA (cm/m^2): 1.9 LV sys. diameter/BSA (cm/m^2): 1.3 LA A2 area: 17.4 cm2 RA long axis: 4.4 cm LA A4 area: 16.5 cm2 RA area: 12.4 cm2 LA length (vol): 4.9 cm RA vol: 29.6 ml LA vol: 50.3 ml RA : 14.5 ml/m2 LA vol index: 24.6 ml/m2 RVD1 (basal): 3.7 cm RVD2 (mid): 2.8 cm TAPSE: 2.8 cm Doppler Measurements & Calculations Ao V2 max: 127.4 cm/sec LVOT Max Esdras: 102.5 cm/sec Ao V2 mean: 95.4 cm/sec LV V1 max P.2 mmHg Ao max P.5 mmHg LV V1 VTI: 24.1 cm Ao mean P.9 mmHg SUREKHA(I,D): 2.5 cm2 Ao V2 VTI: 26.5 cm SUREKHA(V,D): 2.2 cm2 sev ratio: 0.91 SUREKHA indexed to BSA (cm^2/m^2): 1.2 MV E max esdras: 82.4 cm/sec TR max esdras: 271.6 cm/sec MV A max esdras: 109.6 cm/sec TR max P.5 mmHg MV E/A: 0.75 PA V2 max: 82.9 cm/sec Med Peak E' Esdras: 8.0 cm/sec PA V2 mean: 62.9 cm/sec E/E' med: 10.3 PA mean P.7 mmHg Lat Peak E' Esdras: 9.8 cm/sec PA pr(Accel): 44.7 mmHg E/E' lat: 8.4 E/e' average: 9.4 MV dec time: 0.17 sec [facility] 65.9 ml Reading Physician:04:54 PM
== END ==
LOC: ECHO 13:38
PROVIDERS: Family Provider Family Medicine; PCP Family Medicine; Referring Provider Family Medicine; Visit Provider Family Medicine
DX: R55 Syncope and collapse (principal); I07.1 Rheumatic tricuspid insufficiency
CPT/HCPCS: 93306

== ENCOUNTER → 2023-08-22 14:59 | Outpatient (CLI) | payer MEDICARE, OTHER, SELFPAY ==
--- NOTE | 2023-08-22 | DI.US.S_ITS ---
PROCEDURE: US ABDOMEN LIMITED INDICATIONS: EPIGASTRIC PAIN TECHNIQUE: Real-time scanning was performed of the abdominal and retroperitoneal organs, with image documentation. COMPARISON: RG, CT IVP, 07/01/2005, 9:13. FINDINGS: Liver: Liver is diffusely increased in echogenicity. No focal hepatic abnormalities identified. Normal hepatic size. Gallbladder: Prior cholecystectomy. Biliary ducts: Intrahepatic bile ducts are non-dilated. Extrahepatic bile duct caliber measures 7.8 mm. Normal is 6-7 mm or less in diameter, or 10 mm or less post-cholecystectomy. Pancreas: Not well seen Right kidney: Simple right renal cyst measuring 3.6 cm. Miscellaneous: No free abdominal fluid. IMPRESSION: 1. Increased hepatic echogenicity noted possibly related to hepatic steatosis but other sources of hepatocellular disease cannot be excluded. Recommend clinical correlation. 2. 3.6 cm simple right renal cyst. 3. No source for epigastric pain identified. If pain persist with conservative management, consider cross-sectional imaging such as CT or MRI. Dictated by: Anam DISLA Interpreted: Hayden Westbrook MD on 08/22/2023 at 16:09 Transcribed by: JULIA on 08/22/2023 at 16:10 Approved by: Hayden Westbrook M.D. on 08/22/2023 at 17:08
== END ==
PROVIDERS: Family Provider Family Medicine; PCP Family Medicine; Referring Provider Family Medicine; Visit Provider Family Medicine
DX: N28.1 Cyst of kidney, acquired (principal); R10.13 Epigastric pain; D50.9 Iron deficiency anemia, unspecified; Z90.49 Acquired absence of other specified parts of digestive tract
CPT/HCPCS: 76705

== ENCOUNTER → 2023-08-25 13:07 | Outpatient (CLI) | payer MEDICARE, OTHER, SELFPAY ==
[2023-08-25 14:32] LABS: Occult Blood 1 Negative (Negative)
[2023-08-25 14:33] LABS: Occult Blood 2 Negative (Negative); Occult Blood 3 Negative (Negative)
== END ==
LOC: LAB 13:08
PROVIDERS: Family Provider Family Medicine; PCP Family Medicine; Referring Provider Family Medicine; Visit Provider Family Medicine
DX: D50.9 Iron deficiency anemia, unspecified (principal)
CPT/HCPCS: 82270

== ENCOUNTER → 2023-10-06 12:58 | Outpatient (CLI) | payer MEDICARE, OTHER, SELFPAY ==
--- NOTE | 2023-10-07 19:02 | DI.NM.S_ITS ---
DATE OF SERVICE: 10/07/2023 PROCEDURE: Pharmacological perfusion study. INDICATIONS: Chest pain with history of diabetes mellitus, hypertension. RADIOPHARMACEUTICAL: 25.6 millicuries technetium-99m Myoview IV was injected at stress and 27.4 millicuries technetium-99m Myoview IV was injected at rest. CARDIAC STRESS: The patient underwent IV Lexiscan perfusion study under the supervision of an attending staff using standard IV Lexiscan as per protocol. She remained hemodynamically stable. Blood pressure 126/80. Baseline rhythm sinus. During stress, no convincing ischemic changes seen. No significant arrhythmias. No chest discomfort. The patient had mild dyspnea. RAW DATA: There is breast shadow seen. There is also significantly increased subdiaphragmatic activity. Hot spot likely got seen inside the chest affecting the quality of perfusion scan. GATED STUDY: Stress LV ejection fraction 62% without any obvious wall motion abnormalities. Resting end-diastolic volume 106 mL. TID ratio 1.27. Lung/heart ratio 0.53, which is abnormal. MYOCARDIAL PERFUSION SCAN: Stress supine, resting supine and stress prone images were compared to each other. Stress supine images revealed small size, mildly decreased perfusion of the anterior wall and anteroapex. Resting supine images revealed almost no myocardial perfusion uptake. There was a hot spot near the inferior border of the heart making such a decreased count in the myocardium. There is no significant improvement in his stress prone images. On stress prone images, hot spot seen as well. CONCLUSION: This is a very difficult study. However, I do not see any obvious reversible ischemia. During rest, there is no myocardial uptake because of the hot spot in the mediastinum. Likely it is a gut intake. On stress supine images, there is a mildly decreased perfusion of anterior wall and anterior apex, but that wall is moving well. Likely breast tissue attenuation artifact. I will call this study inconclusive study. The patient may have a hiatal hernia. If there is a clinical suspicion for coronary artery disease, consider other modalities like exercise stress echo or dobutamine stress echo or CT coronary angiogram. The patient had a pharmacological study in August 2021. At that time, the patient had predominantly fixed, mild to moderate size inferolateral wall defect extending into the inferoapex and distal anterior wall. At that time, patient had a large breast shadow. In this study, there is no perfusion during resting supine images. Other perfusion defect as stated above. Eagle, Ketty - BUSINESS DEVELOPMENT DIRECTOR/fn/MT doc#: [id number]/job#: [id number] dd: 10/07/2023 16:59:00 dt: 10/07/2023 18:46:00 DICTATING MD/COPIES TO: Kofi De La Rosa MD COPIES MNE: JONAS;
== END ==
LOC: NUCM 12:58
PROVIDERS: Family Provider Family Medicine; PCP Family Medicine; Referring Provider Family Medicine; Visit Provider Family Medicine
DX: R07.9 Chest pain, unspecified (principal); R55 Syncope and collapse; R42 Dizziness and giddiness; E11.9 Type 2 diabetes mellitus without complications
CPT/HCPCS: 78452; 93017; A9502; J2785

== ENCOUNTER → 2024-02-19 12:53 | Outpatient (CLI) | payer MEDICARE, OTHER, SELFPAY ==
--- NOTE | 2024-02-19 13:01 | DI.RAD.S_ITS ---
PROCEDURE: XR KNEE RT 3V INDICATIONS: RIGHT KNEE PAIN TECHNIQUE: 3 views of the knee were acquired. COMPARISON: [facility], CR, XR KNEE LT 3V, 08/27/2021, 12:48. FINDINGS: Bones: No fractures or dislocations. No suspicious bony lesions. Moderate to severe tricompartmental arthritic change most severe medially and in the patellofemoral compartment. Periarticular osteophytes are present. No distinct erosions. Soft tissues: No joint effusion. No suspicious soft tissue calcifications. IMPRESSION: Moderate to severe tricompartmental arthritic change. Dictated by: Elza White M.D. on 02/20/2024 at 11:04 Approved by: Elza White M.D. on 02/20/2024 at 11:05
== END ==
LOC: LAB 12:59 → RAD 13:03
PROVIDERS: Family Provider Family Medicine; PCP Family Medicine; Referring Provider Family Medicine; Visit Provider Family Medicine
DX: M25.561 Pain in right knee (principal); G89.29 Other chronic pain
CPT/HCPCS: 73562

== ENCOUNTER → 2024-07-23 10:35 | Outpatient (CLI) | payer MEDICARE, OTHER, SELFPAY ==
--- NOTE | 2024-07-23 11:02 | EKG_ITS ---
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
[2024-07-23 11:10] LABS: Add Manual Diff / Slide Review NO; Basophils Absolute Auto 0 /uL (0-100); Basophils Percent Auto 0.3 % (0-2); Eosinophils Absolute Auto 300 /uL (0-450); Eosinophils Percent Auto 4.2 % (2-4); Hematocrit 38.9 % (36-46); Hemoglobin 13.2 g/dL (12.0-16.0); Lymphocytes Absolute Auto 1300 /uL (1100-4500); Lymphocytes Percent Auto 20.2 % (25-40); Mean Corpuscular HGB Conc 33.9 % (30-36); Mean Corpuscular Hemoglobin 30.7 PG (26-34); Mean Corpuscular Volume 90.6 fL (80-100); Monocytes Absolute Auto 400 /uL (0-900); Monocytes Percent Auto 6.3 % (3-14); Neutrophils Absolute Auto 4500 /uL (1500-7000); Platelet Count 318 X10^3/uL (150-400); Red Blood Cell Count 4.29 X10^6/uL (4.0-5.2); Red Cell Distribution Width 13.4 % (11.6-14.8); White Blood Cell Count 6.5 X10^3/uL (4.5-11.0)
[2024-07-23 11:21] LABS: Hemoglobin A1C% w Est Avg Glu 5.8 % (4.0-6.0)
[2024-07-23 11:51] LABS: BUN Creatinine Ratio 17.6 (6-22); Blood Urea Nitrogen 23 mg/dL (7-17); Calcium 9.4 mg/dL (8.4-10.2); Carbon Dioxide 26 mmol/L (22-32); Chloride 102 mmol/L (98-107); Estimated Glomerular Filt Rate 42 mL/min (>60); Glucose 102 mg/dL (80-110); HEMOLYSIS < 15 (0-50); Potassium 4.3 mmol/L (3.4-5.1); Sodium 138 mmol/L (137-145)
== END ==
LOC: LAB 10:36
PROVIDERS: Family Provider Family Medicine; PCP Family Medicine; Referring Provider Orthopaedic Surgery Foot and Ankle Surgery; Visit Provider Orthopaedic Surgery Foot and Ankle Surgery
DX: Z01.818 Encounter for other preprocedural examination (principal); R73.9 Hyperglycemia, unspecified; Z01.812 Encounter for preprocedural laboratory examination
CPT/HCPCS: 36415; 80048; 83036; 85025; 93005

== ENCOUNTER → 2024-08-05 11:00 | Outpatient (CLI) | payer MEDICARE, OTHER, SELFPAY ==
[2024-08-05 12:46] LABS: Appearance Urine UA CLEAR; Bilirubin Urine UA NEGATIVE (NEGATIVE); Color Urine UA YELLOW; Glucose Urine UA NEGATIVE (Negative); Ketones Urine UA NEGATIVE (NEGATIVE); Leukocyte Esterase Urine UA NEGATIVE (NEGATIVE); Nitrite Urine UA NEGATIVE (Negative); Occult Blood Urine UA NEGATIVE (Negative); Protein Urine UA NEGATIVE (Negative); Specific Gravity Urine UA 1.025 (1.000-1.035); Urobilinogen Urine UA 0.2 E.U./dL (0.2)
[2024-08-05 12:49] LABS: Urine Volume 10mL (spun); pH Urine UA 5.5 (4.5-8.0)
[2024-08-05 12:50] LABS: Bacteria Urine None Seen; Culture Indicated Urine Cult Not Indicated; RBC Urine None Seen (0-5/HPF); Squamous Epithelial Cell Urine None Seen (0-5/HPF); WBC Urine None Seen (0-5/HPF)
== END ==
PROVIDERS: Family Provider Family Medicine; PCP Family Medicine; Visit Provider Obstetrics & Gynecology Gynecology
DX: R39.198 Other difficulties with micturition (principal)
CPT/HCPCS: 81001

== ENCOUNTER 2024-09-06 08:01 | Inpatient (IN) | payer MEDICARE, OTHER, SELFPAY ==
[2024-08-25 13:21] VITALS: BMI 34.1
--- NOTE | 2024-09-03 20:52 | PM.GYNHP.1 ---
History of Present Illness History of Present Illness Narrative: Date of procedure:?? 09-06-2024 Preoperative diagnosis:? (1) Stress incontinence, female: Status: Acute (2) Urge incontinence of urine: Status: Acute (3) Detrusor dysfunction: Status: Acute (4) Incomplete bladder emptying: Status: Acute (5) Cystocele, midline: Status: Acute (6) Vaginal vault prolapse: Status: Acute Planned Procedure:??Total colpocleisis, mid urethral sling, cystoscopy. Ketty Zeeshan Eagle is a 74 year old female CC: severe POP and UI HPI:??74 yr old F who presents for evaluation of above complaint.?? She reports onset of symptoms 9 months ago.?? She considers this a? Moderate? problem. She has several issues. She has what sounds like stage III or stage IV prolapse as she describes a baseball sized vaginal mass protruding. Prior hysterectomy. She has prolapse symptoms of bulge, heaviness, pressure, splint for bladder and for bowel movement and incomplete emptying of bladder and bowels. She expresses an interest in surgical repair, not really interested in a pessary presently. She also has symptoms of stress incontinence and urge incontinence, both severe. She uses 4 diapers in the day and 2 diapers in the night and estimates that most of the urine goes to the pads and not into the toilet she denies hematuria denies urinary tract infection symptoms. She has both stress incontinence and urge incontinence, triggers listed below. She thinks she does not completely empty her bladder. prior hyst -yes ? -3 c-sec? -0 ? Pelvic Floor Review of Systems: (HPI) ?Stress urinary incontinence (SANDY):??Several episodes per day ?? Triggers include:??? cough, sneeze, laugh, exercise, lifting, walking, standing, ? Urge Incontinence (Urge UI):??Several episodes per day ?? Triggers include:??? Full bladder with urge,?? running water,?? chaudhary-in-door ? She wears 4 diapers in the day and 2 diapers at night. OAB sx:? Frequency:?? q 2 hours hr, ?? Nocturia:??Once Urgency:??Severe Prior incontinence treatment includes:? Medical:? YES uses oxybutynin 5 mg twice a day ? Surgical:?? NO x ? Kegels:?? YES ? Physical therapy:? NO x ? Pessary:? NO x ? Diet / Fluids: ? Fluid restriction:? NO x ? Excessive fluids:? NO x Pain symptoms:? Painful bladder:??? NO x ? Dysuria:??? NO x ? Dyspareunia:? NO x ? Dysmenorrhea:? NO x UTI?s, recurrent:? NO x Hematuria:? NO x Kidney Stones:? NO x Tobacco use:? NO x ? Pelvic Organ Prolapse (POP) symptoms:? Bulge:?YES ? Pressure and /or? Heaviness:?YES ? Splint for defecation or voiding:? YES Voiding dysfunction: ? Abnormal stream:?? NO x ? Strain to void:? YES ? Incomplete emptying:? YES ? Voiding difficulty:? YES ? Retention:?? NO x Bowel Function: ? Constipation:?YES ? Strain to defecate:?YES ? Fiber:? NO x ? Laxatives:? NO x Fecal Incontinence:? Liquid stool:? YES once a month ? Solid stool:? NO x Sexually active:??Not presently, but wants to be ? Incontinence with sex:??Unknown ROS ROS Narrative ROS Narrative: General Review of Systems: Constitutional, CV, Endo, Musc-skel, Eyes, Cancer, Skin, Breast, GI, Heme/Lymph, Psych, Urinary, Neuro, Lock Maintenance Supervisor, Resp, Sexual:??? Pertinent positives listed above, all other systems reviewed and negative. ? All reviewed on patient questionnaire.? Height 5 ft 5 in Weight 205 lb BMI 34.1 BP 132/78 Blood Pressure Location Lt brachial Position Sitting Pulse 64 Pulse Source Monitor Pulse Oximetry (%) 96 Oxygen Delivery Method room air Physical Exam: General:? healthy, alert, coherent, no acute distress, cooperative, nontoxic pulmonary - normal breathing, no distress Abdomen: soft, no mass, non-distended, no hernia, non-tender ?? Skin:? Scars on Abd:? lap Vulva:? Normal labia majora, labia minora, introitus, and clitoris, non-tender Urethra meatus: ???normal, no discharge Perineum:? Normal, non-tender Urethra:? No mass, non-tender Bladder:? no mass, non-tender Vagina:? No lesions, no discharge,? mod atrophy, non-tender stage 3 POP with cystocele and vag vault Levators:?? Non-tender,? hyst Bimanual: ? no mass, no adnexal mass, non-tender Anus:? No lesion, non-tender, no hemorrhoid Empty Cough Stress test:??? Neg PVR:?? 400 mL by catheter Urethral angle hypermobile:? YES Pelvic Organ Prolapse:? YES POP-Q Exam: ? Aa:? +2Ba:? +3.5 ? Ap:? -2 Bp:? -2 ? C:? -4 D: ? TVL:? 10 ? GH:?? 4.5? PB:?? 1.5 ? Introitus size:?? 2-3 fingerbreadths Cystocele stage:?? 3 Rectocele stage:??? 1 Uterine/Vault Prolapse Stage:??? 2 Assessment & Plan (1) Cystocele, midline: Status: Acute (2) Vaginal vault prolapse: Status: Acute (3) Stress incontinence, female: Status: Acute (4) Urge incontinence of urine: Status: Acute (5) Incomplete bladder emptying: Status: Acute Plan Recommendations: ? Patient counseled regarding above conditions.? Educational materials given to patient. ? 1.??? Pelvic Organ Prolapse - Stage 3.? This diagnosis and its etiology was discussed with the patient.? Treatment options were discussed including: expectant management, pessary trial, and surgical intervention. We briefly discussed risks and benefits of surgery. All surgery for prolapse is not 100% successful and there is a chance of recurrence or failure. ? She declines a Pessary Trial for Prolapse she desires surgery. She prefers a total colpocleisis rather than a robotic sacral colpopexy. Says she is no longer sexually active and prefers the less invasive surgery Therefore my recommendation is a total colpocleisis to treat the prolapse, likely with a mid urethral sling to treat her stress incontinence, urodynamics pending Case request placed 2. Incomplete bladder emptying with postvoid residual 400 cc Anticipate this will improve with correction of the prolapse, as likely caused by the prolapse 3. Symptoms of both stress incontinence and urge incontinence. Urodynamics will be done to confirm presence of either or both of these diagnoses. It is possible that her incontinence is completely related to the incomplete bladder emptying and 400 cc retention. If stress incontinence as documented we will proceed with a sling at her request. If there is urgency and overactive bladder demonstrated, she may need a change to her overactive bladder medication. Presently taking oxybutynin 5 mg twice a day without much benefit. Follow-up:??? 1. UDS 2. preop 3. surgery: colpocleisis and +/- sling URODYNAMIC STUDIES 74 year old female, here for evaluation of severe stress incontinence, urge incontinence, stage III prolapse Treatment to date includes:? Prior hysterectomy, overactive bladder treated with oxybutynin 5 mg twice a day Complex Uroflowmetry: unable to do? Filling Cystometry: Position:? Semi-Fowlers? Catheters: air-charged T-Doc? Fill rate:? 50 cc/min First Sensation:? 24 cc? First Urge:? 397 cc? Strong Urge:? 430 Cc? Capacity:? 466 cc Detrusor Overactivity (DO): No Compliance:? Normal EMG tracing -normal Valsalva Leak Point Pressure: ?at?300 cc:? . 73-93 cm H2O? Leak ? :??Yes Cough stress test, positive:??Yes, at 100 cc Stress Urinary Incontinence (SANDY):??Yes, severe variant, leaks at 100 cc Urethral Pressure Profile: Maximum urethral closure pressure:? 55 cm H2O Pressure-Flow Voiding Study: Voided Volume:? 208 cc? Max Flow:? 15 cc/s? Pressure at Peak Flow:? 5 cm H2O? Avg Flow:? 2.5 cc/s? 150 cc postvoid residual There was intermittent multi modal voiding, with little to no detrusor pressure. It is uncertain if she has hardly any effective detrusor function. She does not appear to be a Valsalva voider. Perhaps just voids with urethral relaxation. That makes it difficult to determine whether to do a sling or not for her. However she has such severe stress incontinence at low volumes that she wants to do a sling in spite of the risk that she might have persistent difficulty voiding and she is aware that she is at risk of needing to self-catheterize use a quant chronic indwelling Cuenca catheter because of her poor detrusor function. ASSESSMENT Urodynamic evidence of?see comments above SANDY, yes ISD,?no DO, no Four hundred sixty-six ml bladder capacity No urinary retention As noted above, there is evidence of voiding dysfunction. PLAN We discussed her testing results and treatment options in detail: 1.? Pelvic Organ Prolapse - Stage 3 This diagnosis and its etiology was discussed with the patient.? Treatment options were discussed including: expectant management, pessary trial, and surgical intervention. We briefly discussed risks and benefits of surgery. All surgery for prolapse is not 100% successful and there is a chance of recurrence or failure. A 7. Ring pessary was placed for her staging today. She thought it was comfortable on decided to leave with it. She will keep it in place until surgery. Next week. she desires surgery my recommendation = total colpocleisis, with mid urethral sling Says she is no longer sexually active and prefers the less invasive surgery see below for counseling 2. Incomplete bladder emptying with postvoid residual 400 cc at consult, and then 200 cc and 150 cc today. There is definitely poor detrusor function. Normally the incomplete bladder emptying will improve with prolapse surgery. However, she has definitely poor detrusor function. The surgery might not do anything to help her poor detrusor function. She is at risk of needing to do self catheterization later in life or using a chronic indwelling Cuenca. She is aware of these risks and still would like to do the sling for her stress incontinence because her incontinence burden is so severe with 6 diapers used every day 3. Stress Urinary Incontinence with urethral hypermobility:? This diagnosis was discussed with the patient. The etiology was explained. Treatment options were discussed including expectant management, pelvic floor exercises, pessary trial, and surgical intervention (mid-urethral sling, Quiñones urethropexy, P-V sling, Krysta urethral plication, urethral bulking injection).? Risks and benefits of surgery were briefly outlined. We discussed that she is a candidate for a Midurethral Sling as treatment of her stress incontinence. Success rate of being dry from stress incontinence is about 80-85%; another 10-15% of patients are markedly improved but not cured;? 1-2% will fail, and 1-2% will need the sling cut because it is too tight.? The risk of temporary urinary retention requeiring temporary catheterization is about 15-20%; risk of urinary retention requiring sling release procedure is about 1-2%, as noted above.? We discussed the small 1-3% of mesh erosion as well as the small risk of de rossana urgency.? This procedure is not designed to treat Urge Incontinence symptoms; however, 30-50% of patients with overactive bladder/ urgency urinary incontinence will have improvement in these symptoms, in 30% these symptoms will stay the same, and in 20-30% these symptoms will worsen. She would like to proceed with a sling for her stress incontinence see below for counseling 4. Overactive bladder and urge incontinence.?? This diagnosis and its etiology was discussed with the patient.? Treatment options were discussed including: Behavior changes ( Limit fluid intake, Avoiding fluid intake 3 hours before bedtime, Avoiding bladder irritants / follow bladder diet, Bladder training exercises), Kegel / pelvic floor muscle exercises,? OAB Medications, and procedures to include:? bladder botox A injections, Interstim, and PTNS.?? She has been taking oxybutynin 5 mg twice a day for her overactive bladder. She thought that it really was not working well for her, but she stopped it 2-3 days prior to this study, and definitely noted a difference. She will continue the medication for now. We can reassess its need after surgery. There was no evidence of detrusor overactivity seen on the study today. So she might not need the medication long-term. To be determined. Ramón Jordan MD UroGynecology & Pelvic Reconstructive Surgery [facility] Medical History (Updated 09/03/24 @ 20:30 by Ramón Jordan MD) Detrusor dysfunction Incomplete bladder emptying Urge incontinence of urine Stress incontinence, female Vaginal vault prolapse Cystocele, midline Allergies Depression (~1989) GERD (gastroesophageal reflux disease) Greater trochanteric bursitis of left hip Left knee pain Osteoarthritis of left hip Left hip pain Scoliosis Lumbar spondylosis Sacrococcygeal disorders, not elsewhere classified Spinal stenosis, lumbar region with neurogenic claudication Low back pain Hyperlipidemia HTN (hypertension) Diabetes Surgical History (Updated 07/26/24 @ 13:56 by Angelina Tay DO) S/P total hysterectomy History of cholecystectomy Social History household members: spouse Smoking Status: Never smoker alcohol intake: never Meds Home Medications and Allergies Home Medications Medication Instructions Recorded Confirmed Type levocetirizine 5 mg 07/26/19 08/05/24 History diclofenac sodium 1 % topical gel 2 g topical QID PRN pain #100 grams 08/27/21 08/05/24 Rx (Voltaren Arthritis Pain) lidocaine 5 % topical patch 1 patch topical DAILY PRN pain #15 08/27/21 08/05/24 Rx ea oxycodone-acetaminophen 5 mg-325 1 tab PO Q8H PRN pain #14 tabs 08/27/21 08/05/24 Rx mg tablet (Percocet) atorvastatin 10 mg tablet 10 mg PO DAILY 09/05/22 08/05/24 History bupropion HCl 100 mg tablet,12 hr 100 mg PO BEDTIME 09/05/22 08/05/24 History sustained-release celecoxib 200 mg capsule 200 mg PO DAILY 09/05/22 08/05/24 History escitalopram oxalate 10 mg tablet 10 mg PO DAILY 09/05/22 08/05/24 History estradiol 0.5 mg tablet 0.5 mg PO DAILY 09/05/22 08/05/24 History fluticasone propionate 110 1 inh inhalation PRN 09/05/22 08/05/24 History mcg/actuation HFA aerosol inhaler (Flovent HFA) folic acid 1 mg tablet 1 mg PO DAILY 09/05/22 08/05/24 History glipizide 2.5 mg tablet, extended 2.5 mg PO DAILY 09/05/22 08/05/24 History release 24 hr hydrochlorothiazide 25 mg tablet 25 mg PO DAILY 09/05/22 08/05/24 History losartan 50 mg tablet 50 mg PO DAILY 09/05/22 08/05/24 History pantoprazole 40 mg tablet,delayed 40 mg PO DAILY 09/05/22 08/05/24 History release hydrocodone 5 mg-acetaminophen 325 1 tab PO Q6H PRN pain #14 tabs 06/30/23 08/05/24 Rx mg tablet fluticasone 500 mcg-salmeterol 50 1 inh inhalation PRN 10/14/23 08/05/24 History mcg/dose blistr powdr for inhalation (Alannah Estrada) montelukast 10 mg tablet 10 mg PO DAILY 10/14/23 08/05/24 History cefuroxime axetil 500 mg tablet mg PO 08/05/24 08/05/24 History Allergies Allergy/AdvReac Type Severity Reaction Status Date / Time iodine Allergy Unknown Swelling Verified 08/05/24 09:47 of Lip/Tongue/Throat Penicillins Allergy Unknown Verified 08/05/24 09:47 codeine AdvReac Unknown Vomiting Verified 08/05/24 09:47 meperidine AdvReac Unknown Vomiting Verified 08/05/24 09:47 morphine AdvReac Unknown Vomiting Verified 08/05/24 09:47 Assessment & Plan Assessment and plan (1) Cystocele, midline: Status: Acute (2) Vaginal vault prolapse: Status: Acute (3) Stress incontinence, female: Status: Acute (4) Incomplete bladder emptying: Status: Acute (5) Detrusor dysfunction: Status: Acute (6) Urge incontinence of urine: Status: Acute Plan Surgical Counselling Note Patient seen for surgical counselling.? She desires surgical repair. Please see? H & P for exam and discussion. Date of procedure:?? 09-06-2024 Preoperative diagnosis:? (1) Stress incontinence, female: Status: Acute (2) Urge incontinence of urine: Status: Acute (3) Detrusor dysfunction: Status: Acute (4) Incomplete bladder emptying: Status: Acute (5) Cystocele, midline: Status: Acute (6) Vaginal vault prolapse: Status: Acute Planned Procedure:??Total colpocleisis, mid urethral sling, cystoscopy. Patient counseled extensively about the Risks, Benefits, and Alternatives to surgery.? She was offered the opportunity to ask any questions, and all questions were answered. ? Surgical Risks include: Bleeding, Hemorrhage, Transfusion, Infection (especially wound or bladder), Injury to adjacent organs (especially bladder, ureter, bowel, blood vessels, nerves), Postop or Chronic Pain, need for Reoperation, and Life-threatening event (especially M.I., CVA, PE, DVT). Procedure Risks include: Failure to Cure condition, Recurrence of condition months or years later, Urinary incontinence, Voiding dysfunction or Urinary Retention with prolonged catheter use, Poor wound healing, Erosions of any mesh or graft used, Dyspareunia, Vaginal scarring or narrowing, Need for additional surgery (immediate or delayed).? The expected cure and improvement and failure rates were discussed. Patient counseled to avoid the following for 6 weeks after surgery: (1) Impact sports (like running or jumping), walking and stairs OK (2) Lifting over 20# (3) Sexual intercourse No limits after 6 weeks. ? Good exercise tolerance, > 4 Mets. Her current medications were reviewed, and instructions given over which to use and which to discontinue before surgery.? Post-operative care instructions reviewed.? We discussed post-operative pain: Pain should be in the mild-moderate range, but can be moderate-severe for the first few days.?? Prescriptions will typically be given for (1) acetaminophen (Tylenol) and (2) non-steroidal anti-inflammatory drug (NSAID, like Motrin or Naprosyn), use both together, around the clock. Prescription will also be given for a (3) narcotic pain medication. Use the narcotic as needed, as a booster to the Tylenol and NSAID. You might need 0-4 narcotic pills a day typically. The narcotic will only be needed for a few days.?? Gradually use less of the narcotic, but continue the Tylenol and NSAID.? After a few days, the narcotic should no longer be needed, and only the Tylenol and NSAID will be needed.? Warm packs or cold packs can also be used for pain.??Do not drive for as long as you are using the narcotic pain medication? - this should only be a few days.?? Constipation is associated with use of narcotic pain medications, and can be improved with use of a stool softener, or fiber, or a mild laxative.? All of her questions were answered and then the consent was signed at the end of the office visit.? Patient sent for labs and her preadmission appointment. Ramón Jordan MD UroGynecology & Pelvic Reconstructive Surgery [place], [place] Time-Based Coding :: [TOTAL MINUTES] spent with patient and on the chart (including review of chart, obtaining history, exam, reviewing outside data, placing orders, documenting exam and treatment plan, and counseling patient) on [DATE].
[2024-09-06] VITALS (18 sets, daily range): BP systolic 80–147; BP diastolic 40–122; PULSE 79–114; RESP 10–19; TEMP 36.2–36.9; O2SAT 91–100; BMI 34.1
[2024-09-06 09:05] LABS: Add Manual Diff / Slide Review NO; Basophils Absolute Auto 0 /uL (0-100); Basophils Percent Auto 0.6 % (0-2); Eosinophils Absolute Auto 300 /uL (0-450); Eosinophils Percent Auto 5.2 % (2-4); Hematocrit 34.9 % (36-46); Lymphocytes Absolute Auto 1300 /uL (1100-4500); Lymphocytes Percent Auto 25.5 % (25-40); Mean Corpuscular HGB Conc 34.5 % (30-36); Mean Corpuscular Hemoglobin 31.2 PG (26-34); Mean Corpuscular Volume 90.5 fL (80-100); Monocytes Absolute Auto 300 /uL (0-900); Monocytes Percent Auto 6.5 % (3-14); Neutrophils Absolute Auto 3100 /uL (1500-7000); Neutrophils Percent Auto 62.2 % (50-75); Platelet Count 267 X10^3/uL (150-400); Red Blood Cell Count 3.85 X10^6/uL (4.0-5.2); Red Cell Distribution Width 13.1 % (11.6-14.8)
[2024-09-06] MEDS: LACTATED RINGERS 1,000 ML 21 ML IV (09:05)
[2024-09-06] MEDS: PHENAZOPYRIDINE 100 MG TABLET 200 MG PO (09:07)
[2024-09-06 09:14] LABS: BUN Creatinine Ratio 20.8 (6-22); Blood Urea Nitrogen 26 mg/dL (7-17); Calcium 9.5 mg/dL (8.4-10.2); Carbon Dioxide 25 mmol/L (22-32); Chloride 102 mmol/L (98-107); Estimated Glomerular Filt Rate 45 mL/min (>60); Glucose 102 mg/dL (80-110); HEMOLYSIS < 15 (0-50); Potassium 3.9 mmol/L (3.4-5.1); Sodium 137 mmol/L (137-145)
--- NOTE | 2024-09-06 10:45 | PM.PREOP ---
Pre-operative Note Interval Note History & Physical reviewed/Exam performed by Physician: Yes Changes to H&P: No H&P completed within 30 days and has changed as indicated here:: yes, september 03
[2024-09-06] MEDS: SCOPOLAMINE 1 PATCH TOP (10:46)
[2024-09-06] MEDS: CEFAZOLIN 2 GM/100 ML PREMIX 100 ML IV ×2 (11:25→13:47)
--- NOTE | 2024-09-06 11:50 | SUR.OPER ---
Lithotomy on padded OR bed, head on pillow, arms secured on padded arm boards at <90 degrees abduction. Legs secured in padded yellow fins stirrups.
[2024-09-06] MEDS: LIDOCAINE 1% W/EPI 20ML 20 ML INJ (11:59)
[2024-09-06] MEDS: TRANEXAMIC ACID 1,000 MG VIAL 1000 MG INJ (12:40)
[2024-09-06] MEDS: LACTATED RINGERS 1,000 ML 42 ML IV ×2 (12:40→13:18)
--- NOTE | 2024-09-06 14:10 | P.OP_ITS ---
Procedure & Clinicians Procedure: Procedures Operation Date: 09/06/24 09:45 Actual Procedure Side Surgeon p Total Colpocleisis with Possible Ramón Jordan MD s mid-urethral sling Ramón Jordan MD Operative Notes Findings: Operative Note Surgeon:? Ramón Jordan MD Sales Professional:?? Althea Scherer MD Pre-Op Diagnosis:?? Stage 3 cystocele, vaginal vault prolapse, Stress i ncontinence, urge incontinence, incomplete bladder emptying, voiding dysfunction Post-Op Diagnosis:?? Procedure:?? Total Colpocleisis, mid urethral sling, cystoscopy Findings (brief): 1. Stage 3 POp on EUA, cystocele and vag vault, to +3-4 cm 2. Entire vagina excised in 4 quadrants. More bleeding than usual, 4 Bleeding vessels tied off, EBL 800 cc. Antibiotics redosed. 3-4 cm enterocele entered during dissection, this was closed with running 2-0 vicryl. 3. TVT sling placed at mid-urethra, tension-free 4. cystoscopy with normal bladder, no lesions, no injury, bilateral ureteral jets. Date of Surgery:? 09-06-2024 Complications:? no injury, more bleeding than expected. Specimens:? none Anesthesia Technique:?? General endotracheal Estimated Blood Loss (mls):? 800 Blood Replacement (mls):? none Drains:? Cuenca Condition:? Stable Procedure in detail: After consent was confirmed, the patient was taken to the operating room and placed under general anesthesia without incident.? Sequential compression devices were in place and active.? She received perioperative antibiotics.? She was then prepped and draped in the usual sterile fashion after placement in the dorsal lithotomy position using the Ziyad stirrups.? A Cuenca catheter was placed.? Partial eversion of the vagina was seen. Allis clamps were placed on the right and left sides of the vaginal cuff. A marking pen was used to nile the location of the vaginal incisions, to make 4 quadrants, and the base of the quadrants was the introitus, except 2-3 cm at anterior vagina at the urethra to cover the sling. The vagina was hydrodissected with 25 cc of lidcaine / epi, diluted to 0.50% / 1:400,000. The vagina was incised in the midline from just above the urethro-vesical junction, to the apex, and then down to the posterior introitus. Then the vagina was incised from the apex to each sidewall to create 4 quadrants. The mucosa was dissected off of the underlying pubocervical fascia and rectovaginal fascia with the scissors. All 4 quadrants of vaginal mucosa were excised. There was excision of all of the vaginal mucosa except leaving enough to cover the sling (i.e. Complete vaginectomy - the vaginal circumference is about 10 cm, and is about 7-10 cm deep). There was a 3-4 cm enterocele entered during dissection, this was closed with running 2-0 vicryl. Sutures of 2-0 vicryl were used for the repair. First, the large cystocele was reduced with side to side plication of the bladder fascia, 2 layers done. Next, sutures were placedto close the bladder / pubocervical fascia to the rectum / rectovaginal fascia. Next, several interrupted sutures of 2-0 vicryl were used to close the levator muscles together in the midline.? This closed the pelvic floor (like a male instead of a female), so there was no opening in the pelvic muscles to prolapse through.? Finally, the skin of the vulvar / vaginal opening, i.e. Introitus, was closed side to side, to create a skin layer on top of the muscles.? This essentially forms a small 2-3 cm deep vaginal opening.? During the repair, several bleeding vessels were identified and ligated. With the Cuenca catheter in place, the anterior vaginal mucosa beneath and lateral to the urethra was injected with 10-20 cc of? 0.5% lidocaine / epinephrine 1:200,000.? A 2-3 cm midline incision was made at the level of the midurethra with a scapel. Metzenbaum scissors were used to dissect the vagina from the urethra and then create tunnels beneath the vaginal mucosa up toward the pubic bone on each side.? A marking pen was used to nile the skin just above the pubic bone and 2 cm from the midline bilaterally, and two small 8-10 mm incisions were made on the suprapubic skin.? The trocar was passed from the ri [facility] vaginal tunnel, behind the pubic bone, to the right suprapubic incision, and this was repeated on the left side.? The Cuenca catheter was removed, and cystoscopy was performed with a 70 degree lens. There was no trocar injury, and the bladder, ureters, and urethra were normal.? The Cuenca catheter was reinserted.? The sling was pulled into position in a tension-free manner, and a Krysta clamp was easily passed between the sling and the urethra.? The plastic sheaths were removed to anchor the sling, and tension was checked again. The ends of the sling were trimmed just below the skin, and the skin incisions were cleaned and closed with dermabond. The vaginal incision was closed with 2-0 vicryl in a running fashion. Vaginal pack placed, to be removed tomorrow with Cuenca catheter. Sponge, needle and instrument count was correct.? The patient tolerated the procedure well and was taken to the recovery room in stable condition. Ramón Jordan MD UroGynecology & Pelvic Reconstructive Surgery [place], [place]
[2024-09-06] MEDS: ALBUMIN HUMAN 12.5 GM/250 ML VIAL IV (14:39)
[2024-09-06 15:01] LABS: Hematocrit 28.8 % (36-46); Hemoglobin 9.8 g/dL (12.0-16.0); Mean Corpuscular HGB Conc 33.9 % (30-36); Mean Corpuscular Hemoglobin 31.2 PG (26-34); Mean Corpuscular Volume 92.2 fL (80-100); Platelet Count 263 X10^3/uL (150-400); Red Blood Cell Count 3.13 X10^6/uL (4.0-5.2); White Blood Cell Count 12.4 X10^3/uL (4.5-11.0)
[2024-09-06] MEDS: OXYCODONE IR 5 MG TABLET PO ×2 (15:31→16:04)
[2024-09-06] MEDS: ONDANSETRON 4 MG/2 ML INJ IV (15:31)
[2024-09-06] MEDS: fentaNYL 100 MCG/2 ML INJ IV (15:32)
[2024-09-06 16:42] LABS: Add Manual Diff / Slide Review NO; Basophils Absolute Auto 0 /uL (0-100); Basophils Percent Auto 0.2 % (0-2); Eosinophils Absolute Auto 0 /uL (0-450); Eosinophils Percent Auto 0.1 % (2-4); Hematocrit 28.6 % (36-46); Hemoglobin 9.8 g/dL (12.0-16.0); Lymphocytes Absolute Auto 400 /uL (1100-4500); Mean Corpuscular HGB Conc 34.4 % (30-36); Mean Corpuscular Hemoglobin 31.8 PG (26-34); Mean Corpuscular Volume 92.3 fL (80-100); Monocytes Absolute Auto 100 /uL (0-900); Monocytes Percent Auto 0.6 % (3-14); Neutrophils Absolute Auto 10000 /uL (1500-7000); Neutrophils Percent Auto 95.1 % (50-75); Platelet Count 249 X10^3/uL (150-400); Red Blood Cell Count 3.09 X10^6/uL (4.0-5.2); Red Cell Distribution Width 13.1 % (11.6-14.8); White Blood Cell Count 10.5 X10^3/uL (4.5-11.0)
[2024-09-06] MEDS: ACETAMINOPHEN 325 MG TABLET 1000 MG PO ×2 (17:05→23:25)
[2024-09-06] MEDS: LACTATED RINGERS 1,000 ML 40 ML IV (17:06)
--- NOTE | 2024-09-06 17:26 | PC.NURSE ---
Addendum entered by Inez Lockwood R.N. 09/06/24 19:31: provider wrote hard script for pain meds, and was given to pt's spouse to take to pharmacy. RN saw him place it in his pocket to take to pharmacy Original Note: pt denied pain other than chronic arthritic joint pain, scheduled tylenol given, surgeon in room to see pt and ordered cbc draw for tonight at 2100 and again tomorrow am labs 0500. Provider asked for bladder to be flushed 300cc to 500cc per patients comfort tomorrow morning when folley is removed am , bladder scan post void, if less than 150 put in new folley cath per communication order.
[2024-09-06 20:59] LABS: Hematocrit 26.5 % (36-46); Mean Corpuscular HGB Conc 34.1 % (30-36); Mean Corpuscular Hemoglobin 31.1 PG (26-34); Mean Corpuscular Volume 91.1 fL (80-100); Platelet Count 225 X10^3/uL (150-400); Red Blood Cell Count 2.91 X10^6/uL (4.0-5.2); Red Cell Distribution Width 13.3 % (11.6-14.8); White Blood Cell Count 8.5 X10^3/uL (4.5-11.0)
[2024-09-06] MEDS: IBUPROFEN 600 MG TABLET 400 MG PO (21:25)
[2024-09-07] MEDS: LACTATED RINGERS 1,000 ML 40 ML IV (04:09)
[2024-09-07] MEDS: IBUPROFEN 600 MG TABLET 400 MG PO (05:55)
[2024-09-07 05:57] LABS: Hematocrit 25.4 % (36-46); Hemoglobin 8.7 g/dL (12.0-16.0); Mean Corpuscular HGB Conc 34.4 % (30-36); Mean Corpuscular Hemoglobin 31.4 PG (26-34); Mean Corpuscular Volume 91.2 fL (80-100); Platelet Count 228 X10^3/uL (150-400); Red Blood Cell Count 2.78 X10^6/uL (4.0-5.2); Red Cell Distribution Width 13.2 % (11.6-14.8); White Blood Cell Count 8.2 X10^3/uL (4.5-11.0)
[2024-09-07] MEDS: ACETAMINOPHEN 325 MG TABLET 1000 MG PO (08:57)
[2024-09-07] MEDS: MONTELUKAST 10 MG TABLET PO (08:57)
[2024-09-07] MEDS: PANTOPRAZOLE DR 40 MG TABLET PO (08:57)
[2024-09-07] MEDS: ESCITALOPRAM 10 MG TABLET PO (08:57)
[2024-09-07 09:19] VITALS: BP 115/65; PULSE 92; RESP 16; TEMP 36.4; O2SAT 94
--- NOTE | 2024-09-07 11:34 | CM.DANOTE ---
Initial DCP Assessment Visit Note Reviewed EMR and team rounds for status updates. Met with pt at bedside to introduce self and role, pt was found to be alert/oriented, ambulating around the room, and shared that her pain is now well controlled. Pt resides independently in her own home with her spouse in [place]. Her brother will be transporting her home once she's medically cleared for d/c, likely tomorrow am. Pt declines any CM d/c assistance needs at this time. Payor: Medicare Attending: Dr. Jordan Pt is a 74 year-old F post-op day 1 from a colpocleisis surgery. She has a hx of uterine prolapses in the past, however this recent one has been worsening for the last 7-months, and was found to be the size of a baseball protruding vaginally. She also has a splint for bowel and bladder stress intolerance and urge incontinence, and reports that she goes through 4-diapers during the day, and approx. 2-at night. She this time has opted for surgical repair with a sling placement. Pt did have low blood pressure postoperatively, as well as a leal catheter. DCP will continue to monitor for any further evolving needs prior to her discharge, which is anticipated either later this afternoon or tomorrow am. Discharge Planning/Care Management CM Discharge Assessment Start: 09/07/24 11:32 Freq: Status: Active Protocol: Document 09/07/24 11:32 DPL (Rec: 09/07/24 11:34 DPL [id number]) Discharge Planning Assessment Assigned Oxygen Furnace Operator REAL Chua Advance Directives? No Advance Directives on File No History Provided By Patient,Medical Record Has Patient been admitted in last 30 No days? Prior Living Arrangements House Household Members spouse Type of transporation used prior to Drives own vehicle admit Independent with ADL's Yes Is patient alert and oriented? Yes Comment OP OBGN postoperative f/u. Barriers to Discharge No Discharge Plan Home Referrals Initiated None needed Whiteboard Updated in Patient Room with Yes name and ext. # of Oxygen Furnace Operator Review Status In Process Please Provide Date Initial DC 09/07/24 Assessment Was Performed Pre-Anesthesia Assessment Start: 08/25/24 13:21 Freq: Status: Active Protocol: Document 08/25/24 13:21 LB (Rec: 08/25/24 13:36 LB [id number]) Pre-Anesthesia Assessment PAC Comment 08/25/24 Chart review. Patient Information Reviewed Via Chart Review Diagnostic Results BMP/CMP Comment 07/23/24 at . 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 No Hx Sleep Apnea No Currently Taking a Beta Emelyn No Anti-Coagulant Therapy No Cardiac Testing Yes: Myocardial perfusion , echo 08/09. Hx Pacemaker/ICD No Genitourinary Symptoms Difficulty Urinating Bladder Pattern Incontinent,Incontinent, Stress Urinary Catheter Present No Hx Urinary Self Catheterization No Diabetes Yes HgbA1C 5.8 Date 07/23/24 Patient No Lactating No Presence of External or Internal Medical No Devices Received a COVID vaccine? No Marital Status Lives With spouse Patient Discharge Plan Description Return Home Emergency Contact Name Kashif Eagle - Emergency Contact Advance Directives on File No
[2024-09-07] MEDS: INFLUENZA HD VACCINE 0.5 ML SYRINGE IM (12:39)
--- NOTE | 2024-09-07 13:15 | PM.DS.IH.1 ---
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 The surgery was uncomplicated, see operative note for details however there was more than expected blood loss. EBL was 800 cc. After the fact, it turns out that she did not stop her Celebrex preoperatively and that likely contributed to the bleeding.? Her postoperative course was uncomplicated. Her preoperative hemoglobin was 11. Her postoperative hemoglobin was [address] on repeat labs. She did not have any issues with ambulating or dizziness or blood pressure. No significant pain symptoms. Preoperatively her postvoid residual was 400 cc with severe incontinence as well. Postoperatively it is hard to say but her incontinence is about the same, mostly urge incontinence at this point. And her postvoid residual is 300 cc. Decision made not to insert a catheter due to this is basically her baseline. Her prolapse has resolved. We will track her incontinence symptoms over the next few weeks to see what improvements have been made. We will have her restart her urge incontinence medication oxybutynin She normally takes 1 iron pill a day. We will have her increase that to 2 pills a day. Wound care: No special care Activity Restrictions: For 6 weeks, no lifting over 20#, No impact sports, No sex. See discharge instructions. Diet: Regular Condition on discharge: Stable Discharge Medications: Tylenol 1000 mg 3 times a day. Oxycodone 5 mg 1 pill every 6 hours as needed for pain. Colace twice a day. Normally would add Motrin, however she has Celebrex 200 mg that she takes and will have her resume that using that Follow up: as scheduled with Dr. Jordan.? Ramón Jordan MD UroGynecology & Pelvic Reconstructive Surgery [place], [place] Exam Vital Signs (past 8 hours): - 09/07/24 09:19 Temperature 97.6 F Pulse Rate 92 H Respiratory Rate 16 Blood Pressure 115/65 Pulse Oximetry 94 Oxygen Flow Rate 0 Fraction of Inspired Oxygen 28 SaO2/FiO2 Ratio 346 Oxygen Delivery Method Nasal Cannula Oxygen Flow Rate 0 Objective Labs 09/07/24 05:31 09/06/24 08:46 Labs: Laboratory Results - last 24 hr 09/06/24 09/06/24 09/06/24 14:50 16:20 20:53 WBC 12.4 H D 10.5 8.5 RBC 3.13 L 3.09 L 2.91 L Hgb 9.8 L 9.8 L 9.0 L Hct 28.8 L 28.6 L 26.5 L MCV 92.2 92.3 91.1 MCH 31.2 31.8 31.1 MCHC 33.9 34.4 34.1 RDW 13.0 13.1 13.3 Plt Count 263 249 225 Neut % (Auto) 95.1 H D Lymph % (Auto) 4.0 L D [place] % (Auto) 0.6 L Eos % (Auto) 0.1 L Baso % (Auto) 0.2 Neut # (Auto) 57577 H Lymph # (Auto) 400 L [place] # (Auto) 100 Eos # (Auto) 0 Baso # (Auto) 0 Blood Type O Positive Antibody Screen Negative 09/07/24 05:31 WBC 8.2 RBC 2.78 L Hgb 8.7 L Hct 25.4 L MCV 91.2 MCH 31.4 MCHC 34.4 RDW 13.2 Plt Count 228 Neut % (Auto) Lymph % (Auto) [place] % (Auto) Eos % (Auto) Baso % (Auto) Neut # (Auto) Lymph # (Auto) [place] # (Auto) Eos # (Auto) Baso # (Auto) Blood Type Antibody Screen [facility] Medical History (Updated 09/03/24 @ 20:30 by Ramón Jordan MD) Detrusor dysfunction Incomplete bladder emptying Urge incontinence of urine Stress incontinence, female Vaginal vault prolapse Cystocele, midline Allergies Depression (~1989) GERD (gastroesophageal reflux disease) Greater trochanteric bursitis of left hip Left knee pain Osteoarthritis of left hip Left hip pain Scoliosis Lumbar spondylosis Sacrococcygeal disorders, not elsewhere classified Spinal stenosis, lumbar region with neurogenic claudication Low back pain Hyperlipidemia HTN (hypertension) Diabetes Surgical History (Updated 07/26/24 @ 13:56 by Angelina Tay DO) S/P total hysterectomy History of cholecystectomy Social History household members: spouse Smoking Status: Never smoker alcohol intake: never Discharge Plan Discharge Plan Patient Disposition: Home Provider Discharge Comment: OK to DC to home. she has 3 RX below, also a handwritten RX for #10 of oxycodone 5 mg po q 6 hr prn. she has celebrex at home, so she was told not to ofill the motrin Discharge orders & Medications Prescriptions: New acetaminophen [Tylenol Extra Strength] 500 mg tablet 1,000 mg PO TID Qty: 45 1RF docusate sodium [Colace] 100 mg capsule 100 mg PO BID Qty: 30 1RF Continued cefuroxime axetil 500 mg tablet PO levocetirizine 5 mg 5 mg hydrocodone-acetaminophen 5-325 mg tablet 1 tab PO Q6H PRN (Reason: pain) Qty: 14 0RF diclofenac sodium [Voltaren Arthritis Pain] 1 % gel 2 g topical QID PRN (Reason: pain) Qty: 100 0RF Rx Instructions: apply to single elbow, wrist or hand; for hand includes palm/fingers/back of hand lidocaine 5 % adhesive patch,medicated 1 patch topical DAILY PRN (Reason: pain) Qty: 15 0RF Rx Instructions: leave on most painful area for up to 12 hrs celecoxib 200 mg capsule 200 mg PO DAILY bupropion HCl 100 mg tablet sustained-release 12 hr 100 mg PO BEDTIME glipizide 2.5 mg tablet extended release 24hr 2.5 mg PO DAILY atorvastatin 10 mg tablet 10 mg PO DAILY escitalopram oxalate 10 mg tablet 10 mg PO DAILY fluticasone propionate [Flovent HFA] 110 mcg/actuation HFA aerosol inhaler 1 inh inhalation PRN pantoprazole 40 mg tablet,delayed release (DR/EC) 40 mg PO DAILY hydrochlorothiazide 25 mg tablet 12.5 mg PO DAILY Patient Comments: pt took half dose, total of 12.5mg folic acid 1 mg tablet 1 mg PO DAILY losartan 50 mg tablet 50 mg PO DAILY estradiol 0.5 mg tablet 0.5 mg PO DAILY montelukast 10 mg tablet 10 mg PO DAILY fluticasone propion-salmeterol [Wixela Inhub] 500-50 mcg/dose blister with device 1 inh inhalation PRN Patient Comments: [NO ORIGINAL SIG] Follow up/Referrals: Alisha Novoa MD [Primary Care Provider] - Activity Restrictions/Additional Instructions: DISCHARGE INSTRUCTIONS? -? to Home FUTURE APPOINTMENTS Follow up in about 6 weeks.? Call the office for an appointment if you do not have one scheduled.? We will call you in about 2 weeks to see how you are recovering. NEW DISCHARGE MEDICATIONS:?? Tylenol, Motrin, Colace, Oxycodone POST-OPERATIVE PAIN Pain should be in the mild-moderate range, but can be moderate-severe for the first few days.?? Prescriptions will typically be given for (1) acetaminophen (Tylenol) and (2) non-steroidal anti-inflammatory drug (NSAID, like Motrin or Naprosyn), use both together, around the clock. Prescription will also be given for a (3) narcotic pain medication. Use the narcotic as needed, as a booster to the Tylenol and NSAID. You might need 0-4 narcotic pills a day typically. The narcotic will only be needed for a few days.?? Gradually use less of the narcotic, but continue the Tylenol and NSAID.? After a few days, the narcotic should no longer be needed, and only the Tylenol and NSAID will be needed.? Warm packs or cold packs can also be used for pain.?? Do not drive for as long as you are using the narcotic pain medication? - this should only be a few days.?? Constipation is associated with use of narcotic pain medications, and can be improved with use of a stool softener, or fiber, or a mild laxative.? CARE OF THE VULVA, PERINEUM, & ANAL AREA: You should be able to empty your bladder well, and defecate normally.? Use baby wipes and a water bottle to clean your skin of the vulva, perineum, and anus.?? You can use a cold compress to the perineum, to help prevent pain and swelling.?? The best option is to use a ziplock plastic bag of dried rice or dried beans, similar to a beanbag (can be frozen again and re-used). CONTACT To contact Dr. Jordan after surgery:? Call the office at [phone]? After hours you will be directed to a nurse advice line and if they cannot address your issue, they will contact me. If it is an emergency and the issue cannot wait, then please go to the nearest Emergency Room and be seen by a physician. COREA CATHETER: If you are sent home from the hospital with a Corea Catheter in place:? please call the office and ask to be seen in my office in 3 days for another voiding trial. At that time, we will determine if the catheter can be removed safely.? CONSTIPATION Constipation may occur after this type of surgery, and patients that fail to prevent it can end up in the emergency room.? Constipation is associated with use of narcotic pain medications (such as oxycodone, hydrocodone, hydromorphone, & codeine)? There are No diet restrictions, eat or drink whatever you like.? Just make sure you have a daily bowel movement.? Please use the stool softener (Colace) 1-2 times a day to start with. You can adjust the dose up or down depending on the consistency of your stool. If you are prone to constipation, you should use Lili-Lax daily after surgery.? This is available over the counter, without prescription. If you feel constipated, please use an [id number] laxative.? The best choice is MiraLax.? Alternatives include Milk of Magnesium or mineral oil or even prunes.? Repeat the dose every 4 hours until you have a bowel movement. Or you can use a rectal suppository (i.e. dulcolax, correctol; follow directions on the box). VAGINAL BLEEDING Vaginal discharge and vaginal bleeding is normal after this type of surgery.? It is usually light and can be intermittent (can stop and then start again).? If the amount of bleeding is more than a regular period, please call.? This mild bleeding can continue for 2-6 weeks after surgery. BANDAGES If you have an incision on the abdomen, you may be going home with skin glue on the incision.? It is OK for this to get wet when you shower. Simply clean the incisions gently with soap and water.? The skin glue will gradually peel off over the next 1-4 weeks, or you can peel it off after 2 weeks. SIGNS OF COMPLICATIONS Please call for any of the following: Fever above 100.4 degrees nausea and vomiting dizziness or lightheadedness continued bleeding from the incisions on the day after surgery severe abdominal pain difficulty with urination (burning, inability to urinate) heavy vaginal bleeding (more than a normal menstrual period) Note: the vaginal sutures will dissolve around 4-6 weeks after surgery, and you may notice white or yellow vaginal discharge from the dissolving sutures. PHYSICAL RESTRICTIONS AFTER SURGERY Do not lift over 20 pounds for 6 weeks.? Get assistance with heavy groceries, large laundry baskets, suitcases, etc.? Do not move furniture, etc. No high impact exercises for 6 weeks (like running or jumping). Walking and stairs are OK, even long walks or easy hikes. Elliptical machines and stationary bicycles are OK to maintain cardiac fitness. Pelvic rest (no tampons, no douching, no sexual intercourse) for 6 weeks. No swimming (pool or jacuzzi)? for 2-4 weeks (OK once vaginal bleeding and discharge resolves) No driving for as long as you are using the narcotic pain medication - this should only be a few days.? If you are not using narcotic pain medication, then please use your common sense and only drive if you feel able to perform well.? If it hurts when you apply the brake or turn the steering wheel, then do not drive yet. Other than the limitations which have been listed above, you should use common sense with regards to your daily activities.? If you find that you are doing something which causes you a lot of pain in the area where you have had the surgery, you should stop that activity.? You might find that you will be easily fatigued during the recovery period.? Your body is using a lot of energy for the healing process. Ramón Jordan MD [facility]roGynecology [facility] Pel[facility] Reconstructive Surgery [place], [place] Visit Report/Discharge Packet Instructions: Acetaminophen Stand Alone Forms: Patient Portal/API, Stroke Signs & Symptoms Discharge Data Primary Care Provider: Alisha Novoa VTE Deep Vein Thrombosis/Pulmonary Embolism Present on Admission: No [facility] PROFEE Charge Codes Discharge inpatient/observation: [id number]
--- NOTE | 2024-09-07 14:18 | PC.NURSE ---
D/c instructions reviewed with pt. Pt confirmed that she was given a written prescription for oxycodone; discussed no driving while taking narcotics, and to continue taking OTC and prescribed stool softeners to prevent constipation. IVs removed. Pt felt all questions were answered. Pt exited via w/c with RN and family member to private vehicle.
== END 2024-09-07 14:21 | disposition home or self-care (01) | DRG 748 ==
PROVIDERS: Nurse Anesthetist, Certified Registered; Admitting Provider Obstetrics & Gynecology Gynecology; Family Provider Family Medicine; PCP Family Medicine; Referring Provider Obstetrics & Gynecology Gynecology; Visit Provider Obstetrics & Gynecology Gynecology
PROC: 0ULG8ZZ Occlusion of Vagina, Via Natural or Artificial Opening Endoscopic (ICD-10-PCS; CPT 57120; principal; 2024-09-06 09:45)
PROC: 0TSD0ZZ Reposition Urethra, Open Approach (ICD-10-PCS; 2024-09-06 09:45)
DX: N81.11 Cystocele, midline (principal); N39.46 Mixed incontinence; N31.9 Neuromuscular dysfunction of bladder, unspecified; R33.9 Retention of urine, unspecified; F32.A Depression, unspecified; E11.9 Type 2 diabetes mellitus without complications; E78.5 Hyperlipidemia, unspecified; I10 Essential (primary) hypertension; K21.9 Gastro-esophageal reflux disease without esophagitis; N81.5 Vaginal enterocele; Z79.84 Long term (current) use of oral hypoglycemic drugs; Z23 Encounter for immunization; N31.8 Other neuromuscular dysfunction of bladder; N81.9 Female genital prolapse, unspecified
CPT/HCPCS: 36415; 51729; 51784; 51797; 57120; 57288; 80048; 82962; 85025; 85027; 86850; 86900; 86901; 90471; 90662; 94762; C1771; J0330; J0690; J1100; J1171; J2405; J2704; J3010; P9045

== ENCOUNTER → 2024-10-13 11:35 | Outpatient (CLI) | payer MEDICARE, OTHER, SELFPAY ==
[2024-09-06 08:06] VITALS: BMI 34.1
[2024-10-13 13:30] LABS: Appearance Urine UA CLEAR; Bilirubin Urine UA NEGATIVE (NEGATIVE); Color Urine UA YELLOW; Glucose Urine UA NEGATIVE (Negative); Ketones Urine UA NEGATIVE (NEGATIVE); Leukocyte Esterase Urine UA NEGATIVE (NEGATIVE); Nitrite Urine UA NEGATIVE (Negative); Occult Blood Urine UA NEGATIVE (Negative); Protein Urine UA NEGATIVE (Negative); Specific Gravity Urine UA 1.025 (1.000-1.035); Urobilinogen Urine UA 0.2 E.U./dL (0.2); pH Urine UA 5.5 (4.5-8.0)
[2024-10-13 13:34] LABS: Bacteria Urine None Seen; Culture Indicated Urine Cult Not Indicated; RBC Urine None Seen (0-5/HPF); Squamous Epithelial Cell Urine None Seen (0-5/HPF); Urine Volume 10mL (spun); WBC Urine None Seen (0-5/HPF)
== END ==
PROVIDERS: Family Provider Family Medicine; PCP Family Medicine; Visit Provider Obstetrics & Gynecology Gynecology
DX: Z09 Encounter for follow-up examination after completed treatment for conditions other than malignant neoplasm (principal); R33.9 Retention of urine, unspecified
CPT/HCPCS: 81001

== ENCOUNTER 2025-01-05 06:08 | Day surgery (SDC) | payer MEDICARE, OTHER, SELFPAY ==
[2024-09-06 08:06] VITALS: BMI 34.1
[2025-01-03 14:36] VITALS: BMI 31.6
[2025-01-05] VITALS (10 sets, daily range): BP systolic 109–140; BP diastolic 55–69; PULSE 67–84; RESP 12–24; TEMP 36.2–36.3; O2SAT 91–100; BMI 32.5
--- NOTE | 2025-01-05 06:42 | PM.PREOP ---
Pre-operative Note Interval Note History & Physical reviewed/Exam performed by Physician: Yes Changes to H&P: No
[2025-01-05] MEDS: LACTATED RINGERS 1,000 ML 42 ML IV (07:28)
--- NOTE | 2025-01-05 07:55 | SUR.OPER ---
Supine on padded OR bed, head on pillow, arms secured on padded arm boards at <90 degrees abduction, legs uncrossed, safety belt at waist
--- NOTE | 2025-01-05 08:07 | PM.OP.1 ---
Operative Date/Time/Diagnoses Date of procedure: 01/05/25 Time of procedure: 07:45 Pre-op diagnosis: Arthrofibrosis right total knee Post-op diagnosis: same Procedure & Clinicians Procedure: Manipulation under anesthesia right total knee replacements CPT code 75853 modifier 78 Same procedure(s) as scheduled: Yes Indications: Ketty Eagle is a 74-year-old female status post right total knee replacement on 11/16/2024. She is having some difficulty with range of motion limited to flexion about 90? and just short of full extension. She has been struggling with physical therapy she is indicated for manipulation under anesthesia. Risks and benefits were discussed including risks of skin tears, recurrent arthrofibrosis persistent pain stiffness, fracture for need for additional procedures. Consent was signed. Surgeon: Brianna Burton Click Yes if Unassisted: Yes Anesthesia Type: General Operative Notes Findings: Preoperative range of motion Right knee Extension 3 Flexion 90 Left knee Extension 10 Flexion 95 Postprocedure range of motion right knee Extension 1 Flexion 130 Closure Type: not applicable Specimen(s): none sent Applied: none Estimated Blood Loss (mL): 0 Blood products transfused: none Tourniquet time (min): 0 Procedure in detail: The patient is seen in the preoperative area the site of surgery was marked informed consent confirmed this was the right knee. The patient was brought back to the operating room positioned supine on operative table. General anesthetic was administered. A formal time-out procedure was performed confirming the patient's side and site of procedure no antibiotics were indicated for this closed procedure. Procedure started by taking the preprocedure range of motion measurements from the right and left knees those are given above then utilizing hip and knee flexion and gentle pressure on the proximal tibia the right knee was flexed increasing flexion from 90-130 degrees. There was subtle palpable lysis of adhesions but there was also notable increase in range of motion with the effects of general anesthesia on the right side. After adequate knee flexion motion was obtained knee was brought into extension patella was mobilized medial and lateral appropriately and then pressure and extension was completed improving flexion contracture 2 proximally 1 degree in extension. This completed the procedure and the patient was awoken from anesthesia and taken to the recovery unit in good condition there were no immediate complications from this procedure. Counts were correct. Complications: none Post-operative Condition: stable Disposition: PACU Plan for aftercare: Weightbear as tolerated. Knee range of motion immediately. Restart physical therapy within 2-3 days. Postoperative pain medication and Medrol Dosepak provided.
[2025-01-05] MEDS: fentaNYL 100 MCG/2 ML INJ IV ×3 (08:22→08:39)
[2025-01-05] MEDS: OXYCODONE IR 5 MG TABLET PO (08:27)
[2025-01-05] MEDS: ACETAMINOPHEN IV 1,000 MG/100 ML VIAL 400 MG IV (08:32)
== END 2025-01-05 09:30 | disposition home or self-care (01) ==
PROVIDERS: Family Provider Family Medicine; PCP Family Medicine; Referring Provider Orthopaedic Surgery Foot and Ankle Surgery; Visit Provider Orthopaedic Surgery Foot and Ankle Surgery
PROC: (CPT 27570; principal; 2025-01-05 07:45)
DX: T84.82XA Fibrosis due to internal orthopedic prosthetic devices, implants and grafts, initial encounter (principal)
CPT/HCPCS: 27570; 82962; J0131; J1100; J1885; J2405; J2704; J3010; J3490

== ENCOUNTER → 2025-05-09 13:39 | Outpatient (CLI) | payer MEDICARE, OTHER, SELFPAY ==
[2024-09-06 08:06] VITALS: BMI 34.1
--- NOTE | 2025-05-09 13:41 | DI.MG.S_ITS ---
MM screening mammo BI: 05/09/2025. BI-RADS: 1 CLINICAL: 74-year old female for bilateral screening mammogram. Tyrer-Cuzick lifetime risk of 3.6%. No personal or first-degree family history of breast cancer. Current reported family history of breast cancer: paternal aunt. PRIOR EXAMS: 11/26/2022, 08/01/2021, 05/18/2020, 10/19/2018, 03/04/2018, 08/25/2017. MAMMOGRAPHY TECHNIQUE: 2D and 3D (tomosynthesis) digital mammographic views obtained, with additional images as needed for full coverage. Current study was also evaluated with a Computer Aided Detection (CAD) system. DENSITY B. There are scattered areas of fibroglandular density. MAMMOGRAPHY FINDINGS Bilateral: No suspicious mass, asymmetry, microcalcification, or other abnormality seen. IMPRESSION: * No evidence of malignancy. RECOMMENDATIONS Bilateral * Annual screening mammography. OVERALL ASSESSMENT CATEGORY BI-RADS-1: Negative. [employer] recommends annual screening mammography beginning at age 40 for women with average risk of breast cancer. ELECTRONICALLY SIGNED: Margaret Flores M.D. on 05/10/2025 at 10:12:47 PM PT Interpreting Station ID: [id number]
== END ==
LOC: MAMMO 13:40
PROVIDERS: Family Provider Family Medicine; PCP Family Medicine; Referring Provider Family Medicine; Visit Provider Family Medicine
DX: Z12.31 Encounter for screening mammogram for malignant neoplasm of breast (principal); Z80.3 Family history of malignant neoplasm of breast
CPT/HCPCS: 77063; 77067